=== PATIENT | female | born 1965 | race Caucasian/White ===

== ENCOUNTER → 2016-05-09 | Outpatient (CLI) | payer OTHER ==
[~2016-05-09] MED LIST: CHOL50006 PO; DULE200A INH; GLUCTAB PO; IRBE150T49 PO; LORA-392 PO; MAXA5TAB2 PO; RANI150T PO; SYNT112T PO; TRAM50TA PO; XOPEAER4 INH; ZOLP5TAB3 PO
[2016-05-09 13:17] LABS: FREE T4 1.24 NG/DL (0.76-1.46)
[2016-05-09 13:36] LABS: ALKALINE PHOSPHATASE 70 U/L (45-117); ALT (GPT) 32 U/L (10-53); ANION GAP 7 MEQ/L (5-15); AST (GOT) 13 U/L (15-37); BICARBONATE 26.1 MEQ/L (21.0-32.0); BLOOD UREA NITROGEN 19 MG/DL (7-18); CHLORIDE 104 MEQ/L (98-107); GLOMERULAR FILTRATION RATE 54 ML/MIN (>89); GLUCOSE,FASTING 114 MG/DL (74-99); LDL CHOLESTEROL 160 MG/DL (0-99); POTASSIUM 3.9 MEQ/L (3.5-5.1); SODIUM (NA) 137 MEQ/L (136-145); TOTAL BILIRUBIN ADULT 0.8 MG/DL (0.2-1.0)
[2016-05-09 16:50] LABS: HEMOGLOBIN A1a 0.9 %; HEMOGLOBIN A1b 1.8 %; HEMOGLOBIN Ao 86.1 %; HEMOGLOBIN LA1C 1.9 %; HEMOGLOBIN P3 3.5 %
== END ==
LOC: PLAB 08:57
DX: E03.9 Hypothyroidism, unspecified (principal); E78.5 Hyperlipidemia, unspecified; E55.9 Vitamin D deficiency, unspecified; R73.01 Impaired fasting glucose
CPT/HCPCS: 80053; 80061; 82306; 82607; 82746; 83036; 84439; 84443

== ENCOUNTER 2016-07-06 23:46 | Emergency (ER) | payer OTHER ==
[~2016-07-06] VITALS: Ht 180.3 cm; Wt 96.0 kg
[2016-07-06 23:47] VITALS: BP 162/91; PULSE 91; RESP 18; TEMP 98.6; O2SAT 96
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
[2016-07-07] MEDS ORDERED: TRAM50TA PO (00:46)
--- NOTE | 2016-07-07 00:52 | RADRPT ---
EXAM DATE/TIME: 07/07/2016 00:35 [facility] COMPARISON: No previous studies available for comparison. INDICATIONS : Right flank rib pain from a fall. MEDICAL HISTORY : None. SURGICAL HISTORY : None. ENCOUNTER: Initial ACUITY: 3 days PAIN SCORE: 8/10 LOCATION: Right flank chest FINDINGS: Multiple views of the right ribs were performed. There is no evidence of displaced fracture. No sangeeta tructive lesions or areas of periosteal thickening are seen. Expiratory view of the chest is negativ e for pneumothorax. The mediastinal structures are midline. CONCLUSION: Unremarkable examination of the right ribs and chest. Praveen Turner Jr., MD on July 07, 2016 at 0:49 Board Certified Radiologist. This report was verified electronically.
== END 2016-07-07 02:46 | disposition home or self-care (01) ==
LOC: NEPB 23:46
DX: S20.211A Contusion of right front wall of thorax, initial encounter (principal); W10.9XXA Fall (on) (from) unspecified stairs and steps, initial encounter; E11.9 Type 2 diabetes mellitus without complications; I10 Essential (primary) hypertension; E03.9 Hypothyroidism, unspecified; E78.00 Pure hypercholesterolemia, unspecified; Z79.84 Long term (current) use of oral hypoglycemic drugs; Z87.09 Personal history of other diseases of the respiratory system; Z86.59 Personal history of other mental and behavioral disorders; Z86.79 Personal history of other diseases of the circulatory system; Z87.19 Personal history of other diseases of the digestive system; Z86.2 Personal history of diseases of the blood and blood-forming organs and certain disorders involving the immune mechanism; Z87.39 Personal history of other diseases of the musculoskeletal system and connective tissue; Z86.69 Personal history of other diseases of the nervous system and sense organs
CPT/HCPCS: 71101; 99283

== ENCOUNTER → 2016-08-30 | Outpatient (CLI) | payer OTHER ==
[2016-08-30 09:50] LABS: ALKALINE PHOSPHATASE 71 U/L (45-117); ALT (GPT) 32 U/L (10-53); ANION GAP 9 MEQ/L (5-15); AST (GOT) 16 U/L (15-37); BICARBONATE 26.3 MEQ/L (21.0-32.0); BLOOD UREA NITROGEN 13 MG/DL (7-18); CHLORIDE 105 MEQ/L (98-107); GLOMERULAR FILTRATION RATE 64 ML/MIN (>89); POTASSIUM 4.1 MEQ/L (3.5-5.1); SODIUM (NA) 140 MEQ/L (136-145); TOTAL BILIRUBIN ADULT 0.6 MG/DL (0.2-1.0)
[2016-08-30 10:42] LABS: RHEUMATOID FACTOR TRIGGER LESS THAN 10.0 IU/ML (0.0-14.9)
== END ==
LOC: PLAB 07:52
PROVIDERS: ATTEND Internal Medicine Rheumatology
DX: M06.4 Inflammatory polyarthropathy (principal)
CPT/HCPCS: 80053; 85652; 86038; 86140; 86200; 86430

== ENCOUNTER → 2016-09-26 | Outpatient (CLI) | payer OTHER ==
[2016-09-26 09:30] LABS: FREE T4 1.18 NG/DL (0.76-1.46)
== END ==
LOC: PLAB 06:58
DX: E03.9 Hypothyroidism, unspecified (principal)
CPT/HCPCS: 84439; 84443

== ENCOUNTER → 2016-10-11 | Outpatient (CLI) | payer OTHER ==
[2016-10-11 10:00] LABS: ANION GAP 6 MEQ/L (5-15); AST (GOT) 19 U/L (15-37); BICARBONATE 26.1 MEQ/L (21.0-32.0); BLOOD UREA NITROGEN 15 MG/DL (7-18); CHLORIDE 103 MEQ/L (98-107); GLOMERULAR FILTRATION RATE 61 ML/MIN (>89); GLUCOSE,FASTING 99 MG/DL (74-99); POTASSIUM 4.1 MEQ/L (3.5-5.1); SODIUM (NA) 135 MEQ/L (136-145)
[2016-10-11 10:11] LABS: ALKALINE PHOSPHATASE 72 U/L (45-117); ALT (GPT) 33 U/L (10-53); LDL CHOLESTEROL 183 MG/DL (0-99); TOTAL BILIRUBIN ADULT 0.4 MG/DL (0.2-1.0)
[2016-10-11 17:38] LABS: HEMOGLOBIN A1b 1.7 %; HEMOGLOBIN Ao 86.1 %; HEMOGLOBIN LA1C 1.7 %; HEMOGLOBIN P3 3.5 %
== END ==
LOC: PLAB 06:37
DX: I10 Essential (primary) hypertension (principal); E03.9 Hypothyroidism, unspecified; E55.9 Vitamin D deficiency, unspecified; R73.01 Impaired fasting glucose
CPT/HCPCS: 80053; 80061; 82306; 83036; 84443

== ENCOUNTER 2016-10-31 13:42 | Inpatient (IN) | payer OTHER ==
[~2016-10-31] VITALS: Ht 179.1 cm; Wt 99.2 kg
[~2016-10-31 13:42] MED LIST changes: -CHOL50006 PO; -GLUCTAB PO; -LORA-392 PO; -MAXA5TAB2 PO
[2016-12-02] MEDS ORDERED: ALPR0.25 PO (09:25)
[2016-12-02] MEDS ORDERED: DULE100A INH (09:30)
[2016-12-02] MEDS ORDERED: XOPEAER4 INH (09:30)
[2016-12-02] MEDS ORDERED: CHOL1CAP34 PO (09:30)
[2016-12-02] MEDS ORDERED: RIZA10TA2 PO (09:30)
[2017-01-03] MEDS ORDERED: VANCOMYCIN 1000 MG/NS 250 ML (for <70 kg) IV SCH ×2 (05:30)
[2017-01-03] MEDS ORDERED: POVIDONE IODINE 7.5% SCRUB 118 ML BOTTLE TOPICAL SCH (05:30)
[2017-01-03] MEDS ORDERED: CLINDAMYCIN 900 MG/NS 100 ML IV SCH ×2 (05:30)
[2017-01-03] MEDS ORDERED: CHLORHEXIDINE GLUCONATE 4% SOLN 120 ML BTL TOPICAL SCH (05:30)
[2017-01-03] MEDS ORDERED: DEXAMETHASONE SOD PHOS 20 MG/5 ML VIAL IV PUSH SCH (05:30)
[2017-01-03] MEDS ORDERED: ACETAMINOPHEN 1000 MG/100 ML 100 ML IV ONE (06:45)
[2017-01-03] MEDS ORDERED: SODIUM CHLORIDE 0.9% INJ 100 ML ONE (06:58)
[2017-01-03] MEDS ORDERED: METOPROLOL TARTRATE 25 MG TAB PO PRN (07:00)
[2017-01-03] MEDS ORDERED: CHLORHEXIDINE GLUCONATE 2 % 1 PACK (2 CLOTHS) TOPICAL PRN (07:00)
[2017-01-03] MEDS ORDERED: LACTATED RINGER'S 1000 ML IV PRN (07:00)
[2017-01-03] MEDS ORDERED: POVIDONE IODINE 5% (ANTISEPSIS KIT) 4 APPLICATIONS EACH NARE PRN (07:00)
[2017-01-03] MEDS ORDERED: INSULIN HUMAN REGULAR 1,000 UNITS/10 ML VIAL SQ PRN (07:00)
[2017-01-03] MEDS ORDERED: SODIUM CHLORID 0.9% 500 ML IV PRN (07:00)
[2017-01-03] MEDS ORDERED: RIZATRIPTAN PO PRN (07:15)
[2017-01-03] MEDS ORDERED: SODIUM CHLORIDE 0.9% FLUSH 5 ML FLUSH IVF PRN (07:15)
[2017-01-03] MEDS ORDERED: Post-op Orders (for Pharmacy) MISC XX ONE (07:15)
[2017-01-03] MEDS ORDERED: ENOX40P SQ (07:17)
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
[2017-01-03] MEDS ORDERED: ASPI81CH37 CHEW (07:18)
[2017-01-03] MEDS ORDERED: DILA2TAB2 PO (07:18)
--- NOTE | 2017-01-03 07:18 | HHI.FF ---
Face to Face Verification Diagnosis: (1) Primary localized osteoarthrosis, lower leg Physical Therapy Gait training, Safety evaluation, Transfer training, bed to chair Knee: Total knee, Protocol: Left, Full weight bearing Left LE Weight Bearing: WB as tolerated Nursing RN: 3 days/week x 2 weeks Nursing: Case teaching, Dressing changes Dressing Changes: Daily dressing change I have seen patient Valentina Hernandez on 01/03/17. My clinical findings support the need for the requested home health care services because: Limited ability to care for self High risk of falls I certify that my clinical findings support that this patient is homebound because: Post-op weakness Unsteady gait/balance Oscar Balderas Jan 03, 2017 07:18
[2017-01-03] MEDS ORDERED: COMMODE 3-IN-11 MIS (07:22)
[2017-01-03] MEDS ORDERED: WALKER WHEELS/F1 MIS (07:22)
[2017-01-03] MEDS ORDERED: CPMMACHINE (07:22)
[2017-01-03] MEDS ORDERED: GENTAMICIN SULFATE 80 MG/2 ML VIAL ONE ×2 (07:33)
[2017-01-03] MEDS ORDERED: LEVOTHYROXINE SODIUM 112 MCG TAB PO SCH (08:00)
[2017-01-03] MEDS ORDERED: PROPOFOL 200 MG/20 ML AMP IV ONE (08:11)
[2017-01-03] MEDS ORDERED: MIDAZOLAM HCL 2 MG/2 ML VIAL IV ONE (08:11)
[2017-01-03] MEDS ORDERED: LIDOCAINE HCL 1% PF 5 ML AMPULE OTHER ONE (08:11)
[2017-01-03] MEDS ORDERED: DEXAMETHASONE SOD PHOS 4 MG/ML VIAL IV ONE (08:11)
[2017-01-03] MEDS ORDERED: LACTATED RINGER'S 1000 ML INJ 1,000 ML IV ONE ×2 (08:11→12:45)
[2017-01-03] MEDS ORDERED: PHENYLEPH/NS 1000 MCG/10 ML SYR IV ONE (08:11)
[2017-01-03] MEDS ORDERED: ONDANSETRON HCL 4 MG/2 ML VIAL IV PUSH ONE (08:11)
[2017-01-03] MEDS ORDERED: ePHEDrine/NS 25 MG/5 ML SYR IV ONE (08:11)
[2017-01-03] MEDS ORDERED: ONDANSETRON HCL 4 MG/2 ML VIAL ONE (08:22)
[2017-01-03] MEDS ORDERED: DEXAMETHASONE SOD PHOS 4 MG/ML VIAL ONE (08:22)
[2017-01-03] MEDS ORDERED: FAMOTIDINE 20 MG/2 ML VIAL ONE (08:22)
[2017-01-03] MEDS ORDERED: APREPITANT 40 MG CAP ONE (08:22)
[2017-01-03] MEDS ORDERED: ROPIVACAINE PERI-ARTICULAR INJECTION. P-ARTICULR SCH ×5 (08:30)
[2017-01-03] MEDS ORDERED: TRANEXAMIC PERI-ARTICULAR 3,000 MG/NS 100 ML P-ARTICULR SCH ×2 (08:30)
[2017-01-03] MEDS ORDERED: SODIUM CHLORIDE 0.9% IV SCH (08:30)
[2017-01-03] MEDS ORDERED: TRANEXAMIC ACID IV SCH (08:30)
[2017-01-03] MEDS: SODIUM CHLORIDE 0.9% FLUSH 5 ML FLUSH IVF SCH ×2 (09:00→19:39)
[2017-01-03] MEDS ORDERED: BISACODYL 10 MG SUPP RECTAL PRN (09:00)
[2017-01-03] MEDS ORDERED: DO NOT ADM ANY ANTICOAGULANT DRUGS PRN (10:56)
--- NOTE | 2017-01-03 10:59 | MP ---
cc: STANLEY PENA M.D. DATE OF SURGERY: 01/03/2017 PREOPERATIVE DIAGNOSIS Left knee osteoarthritis. POSTOPERATIVE DIAGNOSES Left knee osteoarthritis. PROCEDURE Left total knee arthroplasty. SURGEON Dr. Stanley Pena FRAME CHANGER Dr. Stanley Balderas PA-C ANESTHESIA Spinal with an adductor canal femoral nerve block. ESTIMATED BLOOD LOSS 50 cc. COMPLICATIONS None. IMPLANTS USED DePuy Attune size 5 posterior stabilized femoral component, size 5 rotating platform tibia baseplate, size 6 mm tibial insert, size 38 patella. JUSTIFICATION The patient is a 51-year-old female with a history of severe end-stage osteoarthritis involving the left knee. She has severe disabling pain with standing, walking, ambulation and weightbearing activities and severe pain at rest. Her pain interferes with activities of daily living. She has failed greater than three months of nonoperative conservative treatment to include medication therapy, injections, ambulatory assisted aids, home exercise program, activity modification and weight loss attempts. X-rays of the left knee reveal severe end-stage osteoarthritis, joint space narrowing, subchondral sclerosis, subchondral cysts, osteophyte formation and associated varus deformity. The patient is counseled as to the risks, benefits and alternatives of a total knee arthroplasty. The risks were discussed which include but not limited to anesthesia, bleeding, infection, damage to nerves and blood vessels, pain, stiffness, failure of components, blood clots, pulmonary embolism and even . The patient's pain is severe. She favored the benefits over the risks. She did wish to proceed with surgery. PROCEDURE IN DETAIL Written consent was obtained. The patient was identified by name and taken to the operating room and placed supine on the operating table. Spinal anesthesia was administered as well as an adductor canal femoral nerve block. The patient was administered one gram of IV vancomycin and two grams of IV Ancef. A well-padded tourniquet was placed on the left thigh. The left lower extremity was prepped and draped using isopropyl alcohol, Hibiclens solution and ChloraPrep solution. After a timeout was performed an Esmarch bandage was used to exsanguinate the left lower extremity. The tourniquet was inflated to 250 mmHg. A longitudinal incision was made over the anterior aspect of the left knee. A medial parapatellar arthrotomy was performed. The patella was everted. A patellar resection guide was used to resect 9 mm of patella. A size 38 mm guide was placed. Three drill holes were placed. The 38 mm trial fit well. Attention was turned to the femur where an intramedullary guide roney was placed. The distal femoral guide was set to remove 11 mm of distal femur 5 degrees off the anatomic valgus axis alignment. I chose 11 mm because there was significant preoperative flexion contracture. An oscillating saw was used to perform the distal femoral cut. Attention was turned to the tibia where an extramedullary tibial guide was set to remove 5 mm off the lowest portion of the medial tibial plateau. A tibial guide was pinned in place and the tibia cut was performed. A 5 mm spacer block showed full extension. Attention was turned back to the femur. The AP sizer block measured a size 5. The anterior reference 3 degree external rotation guide was used to pin a size [address] The anterior and posterior chamfer cuts were performed. A PCL box guide was pinned in place and the PCL was box cut with an oscillating saw. The medial and lateral meniscus remnants were removed as well as bone and soft tissue debris from the posterior portion of the knee. A size 5 tibial baseplate was pinned in place and the tibia was drilled and punched. Trial components were evaluated and final components cemented in place. With the correct components the leg could achieve full extension 0 degrees and flexion 140. No evidence of tibial lift-off. Varus-valgus balance appeared appropriate and symmetric. The patella was noted to track centrally. The tourniquet was deflated. Bovie cautery was used for hemostasis. The surgical wound was thoroughly irrigated with sterile saline pulse lavage antibiotic-impregnated solution. The arthrotomy incision was closed with #1 Vicryl suture, the subcutaneous layer with 2-0 Vicryl suture. The skin was closed with Dermabond. Sterile dressings were applied. The patient tolerated the procedure well with no intraoperative complications noted. Stanley Balderas, physician assistant guest services manager certified, was present during the entire procedure to include patient positioning and the procedure itself. The medical necessity of the physician assistant guest services manager was indicated in this case due to the complexity of the proceudre. He assisted with manipulation of the leg and also retraction of muscle, tendon, bone and neurovascular structures. He assisted with preparation of bone and also implantation of the prosthetic replacement. MD JAMAAL Willis/MOE /10:30 AM /10:40 AM
--- NOTE | 2017-01-03 11:17 | PD.ORT.PN ---
Objective Vitals Vital Signs Date Time Temp Pulse Resp B/P (MAP) Pulse Ox O2 Delivery O2 Flow Rate FiO2 01/03/17 07:23 98.2 87 20 111/67 (82) 97 I/O 01/02/17 01/02/17 01/02/17 01/03/17 01/03/17 01/03/17 07:00 15:00 23:00 07:00 15:00 23:00 Intake Total 1100 ml Output Total 550 ml Balance 550 ml Intake Other 1100 ml Output Urine Total 500 ml Estimated Blood Loss 50 ml Assessment & Plan Ortho Post Op Day #: 0 Problem List: Assessment and Plan s/p L TKA POD#0 wbat daily dressing changes lovenox d/c planning home vs snf rx in chart 1349 signed f/up dr. xie 2 weeks Oscar Balderas Jan 03, 2017 11:17
[2017-01-03] MEDS: SODIUM CHLOR 0.9% 1000 ML INJ 1,000 ML IV SCH ×2 (11:20→17:14)
[2017-01-03] MEDS ORDERED: KETOROLAC TROMETHAMINE 30 MG/ML (IVP) VIAL ONE (11:32)
[2017-01-03] MEDS ORDERED: *HYDROmorphone PF 1 MG VIAL PERIprocedural Use ONLY ONE ×2 (11:32→12:22)
--- NOTE | 2017-01-03 11:52 | RADRPT ---
EXAM DATE/TIME: 01/03/2017 11:11 [place] COMPARISON: No previous studies available for comparison. INDICATIONS : Left total knee post op. MEDICAL HISTORY : Hypertension. SURGICAL HISTORY : None. ENCOUNTER: Initial ACUITY: 1 day PAIN SCORE: 0/10 LOCATION: Bilateral chest FINDINGS: Displacement of a total knee prosthesis which appears to be well-seated. CONCLUSION: Total knee prosthesis well seated Tim Gil MD on January 03, 2017 at 11:50 Board Certified Radiologist. This report was verified electronically.
[2017-01-03] MEDS ORDERED: traMADol HCL 50 MG TAB PO PRN (12:00)
[2017-01-03] MEDS ORDERED: RESP: ALBUTEROL 2.5 MG/3 ML NEB (PRN) NEB (13:15)
--- NOTE | 2017-01-03 13:21 | PD.CONS ---
HPI Service [facility] Consult Requested By Primary Care Physician Vinny Quinteros MD, PhD Diagnoses: History of Present Illness Mrs. Hernandez is a 51 year old female. She is hospitalized for a left total knee arthroplasty. I have seen her status post surgery and she is recovering well thus far. Chronic osteoarthritis with prior injuries and a recent injury which was not recovering in regards to pain prompted her knee replacement surgery today. Presently her blood pressures are relatively low, she takes blood pressure medications at baseline but these are on hold. She has asthma but this is not exacerbated. She has episodes of migraine headaches but she reports no headaches at this time. Her primary complaint is burning of the IV site. Review of Systems Constitutional: DENIES: Diaphoretic episodes, Fatigue, Fever, Weight gain, Weight loss, Chills, Dizziness, Change in appetite, Night Sweats Endocrine: DENIES: Heat/cold intolerance Eyes: DENIES: Blurred vision, Diplopia, Eye inflammation, Eye pain, Vision loss , Photosensitivity, Double Vision Ears, nose, mouth, throat: DENIES: Tinnitus, Hearing loss, Vertigo, Nasal discharge, Oral lesions, Throat pain, Hoarseness, Ear Pain, Running Nose, Epistaxis, Sinus Pain, Toothache, Odynophagia Respiratory: DENIES: Apneas, Cough, Snoring, Wheezing, Hemoptysis, Sputum production, Shortness of breath Cardiovascular: DENIES: Chest pain, Palpitations, Syncope, Dyspnea on Exertion , PND, Lower Extremity Edema, Orthopnea, Claudication Gastrointestinal: DENIES: Abdominal pain, Black stools, Bloody stools, Constipation, Diarrhea, Nausea, Vomiting, Difficulty Swallowing, Anorexia Musculoskeletal: COMPLAINS OF: Joint pain, DENIES: Muscle aches, Stiffness, Joint Swelling, Back pain, Neck pain Integumentary: DENIES: Abnormal pigmentation, Pruritus, Rash, Nail changes, Breast masses, Breast skin changes, Nipple discharge Hematologic/lymphatic: DENIES: Bruising, Lymphadenopathy Immunologic/allergic: DENIES: Eczema, Urticaria Neurologic: DENIES: Abnormal gait, Headache, Localized weakness, Paresthesias, Seizures, Speech Problems, Tremor, Poor Balance Psychiatric: DENIES: Anxiety, Confusion, Mood changes, Depression, Hallucinations, Agitation, Suicidal Ideation, Homicidal Ideation, Delusions Past Family Social History Allergies: Coded Allergies: acetaminophen (Verified Allergy, Severe, Rash, 01/03/17) nausea vomiting rash adhesive (Verified Allergy, Severe, red rash PAPER TAPE ONLY, 01/03/17) amoxicillin (Verified Allergy, Severe, RASH, VOMITTING, DIARRHEA, 01/03/17) cefepime (Verified Allergy, Severe, RASH, VOMITTING, DIARRHEA, 01/03/17) cefprozil (Verified Allergy, Severe, Anaphylaxis, 01/03/17) ceftaroline fosamil (Verified Allergy, Severe, RASH, VOMITTING, DIARRHEA, 01/03/17) cefuroxime (Verified Allergy, Severe, RASH, VOMITTING, 01/03/17) clavulanic acid (Verified Allergy, Severe, RASH, VOMITTING, DIARRHEA, 01/03) codeine (Verified Allergy, Severe, NAUSEA,RASH,THINGS CRAWLING ON ME , ) hydrocodone (Verified Allergy, Severe, NAUSEA,ITCHING, 01/03/17) latex (Verified Allergy, Severe, RASH, HIVES, 01/03/17) morphine (Verified Allergy, Severe, Itching, 01/03/17) CODED WHEN USED LAST nickel (Verified Allergy, Severe, 01/03/17) oxycodone (Verified Allergy, Severe, rash,shakey,shortnes of breath, HALLUCINATIONS, 01/03/17) penicillin G (Verified Allergy, Severe, ANAPHYLAXIS, 01/03/17) perfume (Verified Allergy, Severe, 01/03/17) insulin aspart (Verified Adverse Reaction, Severe, "BODY DOES NOT PROCESS INSULIN" "HYPERINSULIN ANEMIA", 01/03/17) insulin aspart protamine human (Verified Adverse Reaction, Severe, "BODY DOES NOT PROCESS INSULIN" "HYPERINSULIN ANEMIA", 01/03/17) insulin detemir (Verified Adverse Reaction, Severe, "BODY DOES NOT PROCESS INSULIN" "HYPERINSULIN ANEMIA", 01/03/17) insulin glargine (Verified Adverse Reaction, Severe, "BODY DOES NOT PROCESS INSULIN" "HYPERINSULIN ANEMIA", 01/03/17) insulin isophane (NPH) (Verified Adverse Reaction, Severe, "BODY DOES NOT PROCESS INSULIN" "HYPERINSULIN ANEMIA", 01/03/17) insulin lispro (Verified Adverse Reaction, Severe, "BODY DOES NOT PROCESS INSULIN" "HYPERINSULIN ANEMIA", 01/03/17) insulin regular (Verified Adverse Reaction, Severe, "BODY DOES NOT PROCESS INSULIN" "HYPERINSULIN ANEMIA", 01/03/17) Uncoded Allergies: SILK TAPE (Allergy, Severe, SWELLS, 11/29/08) Past Medical History Hypertension Hyperlipidemia Asthma Osteoarthritis Hypothyroidism Metabolic syndrome Migraine headaches Past Surgical History Previous left knee surgery Reported Medications Reported Meds & Active Scripts Active Dilaudid (Hydromorphone HCl) 2 Mg Tab 2 Mg PO Q6H PRN Aspirin Low Dose (Aspirin) 81 Mg Chew 81 Mg CHEW BID 30 Days Lovenox Inj (Enoxaparin Sodium) 40 Mg/0.4 Ml Syr 40 Mg SQ DAILY 7 Days Reported Vitamin D3 (Cholecalciferol) 50,000 Unit Cap 50,000 Units PO Q7D Xopenex Hfa 15 GM Inh (Levalbuterol 15 GM Inh) 45 Mcg/Act Aer 2 Puff INH PRN Shake well before using. (1 puff = 45 mcg) Dulera 120 Act Inh (Mometasone-Formoterol 120 Act Inh) 100-5 Mcg/Act Inh 2 Puff INH BID Rizatriptan (Rizatriptan Benzoate) 10 Mg Tab 1 Tab PO Q2HR PRN Alprazolam 0.25 Mg Tab 0.25 Mg PO BID Dulera 120 Act Inh (Mometasone-Formoterol 120 Act Inh) 200-5 Mcg/Act Inh 2 Puff INH BID Avapro (Irbesartan) 150 Mg Tab 150 Mg PO DAILY Synthroid (Levothyroxine Sodium) 112 Mcg Tab 112 Mcg PO DAILY Ranitidine (Ranitidine HCl) 150 Mg Tab 1 Tab PO BID Tramadol (Tramadol HCl) 50 Mg Tab 50 Mg PO Q6HR PRN Xopenex Hfa 15 GM Inh (Levalbuterol 15 GM Inh) 45 Mcg/Act Aer 45 Mcg INH Q4HR Shake well before using. (1 puff = 45 mcg) Zolpidem (Zolpidem Tartrate) 5 Mg Tab 5 Mg PO HS PRN Active Ordered Medications Administered Medications Medications (Trade) Dose Ordered Sig/Regina Route PRN Reason Start Time Stop Time Status Last Admin Dose Admin Povidone Iodine (Betadine 7.5% Scrub) 1 applic ONCE TOPICAL 01/03/17 05:30 01/06/17 05:29 01/03/17 05:30 Vancomycin HCl 1000 mg/Sodium Chloride 250 ml @ 250 mls/hr [employer] IV 01/03/17 05:30 01/06/17 05:29 01/03/17 07:24 Clindamycin Phosphate 900 mg/ Sodium Chloride 106 ml @ 212 mls/hr [employer] IV 01/03/17 05:30 01/03/17 07:24 Tranexamic Acid 1488 mg/Sodium Chloride 114.88 ml @ 200 mls/ hr ONCE IV 01/03/17 08:30 01/03/17 21:00 01/03/17 09:01 Ropivacaine 24.63 ml/Ketorolac Tromethamine 30 mg/Epinephrine HCl 0.5 mg/ Clonidine 80 mcg/ Sodium Chloride 100 ml @ 200 mls/hr ONCE P-ARTICULR 01/03/17 08:30 01/03/17 21:00 01/03/17 10:26 Tranexamic Acid 3000 mg/Sodium Chloride 130 ml @ 260 mls/hr ONCE P-ARTICULR 01/03/17 08:30 01/03/17 21:00 01/03/17 10:16 Dexamethasone Sodium Phosphate (Decadron Inj) 10 mg ONCE IV PUSH 01/03/17 05:30 01/03/17 21:00 01/03/17 07:20 Lactated Ringer's 1,000 ml @ 30 mls/hr Q24H PRN IV SEE LABEL COMMENTS 01/03/17 07:00 01/06/17 06:59 01/03/17 07:00 Povidone Iodine (Betadine 5% Antisepsis Kit) 1 applic [employer] PRN EACH NARE SEE LABEL COMMENTS 01/03/17 07:00 01/06/17 06:59 01/03/17 07:00 Chlorhexidine Gluconate (Chlorhexidine 2% Cloth) 3 pack [employer] PRN TOPICAL SEE LABEL COMMENTS 01/03/17 07:00 01/06/17 06:59 01/03/17 05:15 Sodium Chloride 1,000 ml @ 100 mls/hr Q10H IV 01/03/17 07:14 01/03/17 11:20 Family History Diabetes mellitus type 2 in most relatives Dementia Social History No smoking No alcohol abuse No illicit drug use Physical Exam Vital Signs Vital Signs Date Time Temp Pulse Resp B/P (MAP) Pulse Ox O2 Delivery O2 Flow Rate FiO2 01/03/17 11:15 105/55 (72) Simple Mask 6 01/03/17 10:59 97.9 91 15 83/51 (62) 100 Simple Mask 6 01/03/17 07:23 98.2 87 20 111/67 (82) 97 Physical Exam GENERAL: NAD, A&Ox3 HEAD: Normocephalic. NECK: Supple, trachea midline. No lymphadenopathy. EYES: No scleral icterus. No injection or drainage. CARDIOVASCULAR: Regular rate and rhythm without murmurs, gallops, or rubs. RESPIRATORY: Breath sounds equal bilaterally. No accessory muscle use. GASTROINTESTINAL: Abdomen soft, non-tender, nondistended. MUSCULOSKELETAL: No cyanosis, or edema. Left knee is bandaged and in knee mobilizer SKIN: Warm and dry. NEURO: No focal neurological deficitis. Assessment and Plan Problem List: (1) Status post total knee replacement, left ICD Code: Z96.652 - Presence of left artificial knee joint Status: Acute (2) Primary localized osteoarthrosis, lower leg ICD Code: M17.10 - Unilateral primary osteoarthritis, unspecified knee (3) Headache ICD Code: R51 - Headache Status: Acute (4) Hypertension ICD Code: I10 - Essential (primary) hypertension Status: Chronic (5) Hypothyroidism ICD Code: E03.9 - Hypothyroidism, unspecified Status: Chronic (6) Hyperlipidemia ICD Code: E78.5 - Hyperlipidemia, unspecified Status: Chronic (7) Osteoarthritis ICD Code: M19.90 - Unspecified osteoarthritis, unspecified site Status: Acute Assessment and Plan Assessment and plan 51-year-old female status post left total knee arthroplasty Status post left total knee arthroplasty Osteoarthritis Orthopedics following Continue as needed pain treatments PT to start Postop IV fluids discontinued secondary to IV burning sensations at site Supportive care Hypertension Borderline low, no current hypertension Home treatments for now monitor blood pressures Pain treatments and or anesthesia may be causing his suppressive effect Resume treatments when blood pressure increases Hyperlipidemia No change to baseline treatment Follow as an outpatient Asthma Baseline maintenance therapy resumed As needed albuterol started Monitor clinically Currently no exacerbation Hypothyroidism Continue Synthroid Follow levels as an outpatient Metabolic syndrome Follow blood sugars BMP in the morning His blood sugars are elevated continue to monitor blood sugars Migraine headaches Imitrex as needed Follow clinically for headaches DVT prophylaxis To start postop Selection per orthopedic discretion Problem Qualifiers (1) Primary localized osteoarthrosis, lower leg: Qualified Codes: M17.12 - Unilateral primary osteoarthritis, left knee Sumit Grey MD Jan 03, 2017 13:21
[2017-01-03 13:30] VITALS: BP 107/65; PULSE 84; RESP 18; TEMP 96.6; O2SAT 96
[2017-01-03] MEDS: HYDROmorphone HCL PF 2 MG/ML VIAL IV PRN ×2 (14:40→23:20)
[2017-01-03 16:00] VITALS: BP 109/69; PULSE 79; RESP 18; TEMP 97.6; O2SAT 94
[2017-01-03] MEDS: diphenhydrAMINE HCL 50 MG/ML VIAL IV PRN ×2 (16:10→23:20)
[2017-01-03] MEDS ORDERED: ONDANSETRON HCL 4 MG/2 ML VIAL IVP PRN (18:00)
[2017-01-03] MEDS: VANCOMYCIN INJ 1,000 MG in SODIUM CHLOR 0.9% 250 ML INJ 250 ML IV SCH (19:39)
[2017-01-03] MEDS: traMADol HCL 50 MG TAB PO PRN (19:40)
[2017-01-03] MEDS: ALPRAZolam 0.25 MG TAB PO SCH (19:40)
[2017-01-03] MEDS: FAMOTIDINE 20 MG TAB PO SCH (19:40)
[2017-01-03 20:00] VITALS: BP 103/61; PULSE 81; RESP 16; TEMP 96.5; O2SAT 97
[2017-01-03] MEDS ORDERED: MOMETASONE INH SCH (21:00)
[2017-01-03] MEDS ORDERED: FORMOTEROL INH SCH (21:00)
[2017-01-04] VITALS (7 sets, daily range): BP systolic 87–113; BP diastolic 55–69; PULSE 62–93; RESP 16–18; TEMP 95.8–98.4; O2SAT 95–98
[2017-01-04] MEDS: SODIUM CHLOR 0.9% 1000 ML INJ 1,000 ML IV SCH ×3 (00:15→23:07)
[2017-01-04] MEDS: traMADol HCL 50 MG TAB PO PRN ×5 (03:43→23:24)
[2017-01-04 05:01] LABS: HEMATOCRIT 36.8 % (35.0-46.0); MEAN CELL VOLUME 92.5 FL (80.0-100.0); MEAN CORPUSCULAR HEMOGLOBIN 30.1 PG (27.0-34.0); MEAN CORPUSCULAR HGB CONC 32.5 % (32.0-36.0); PLATELET COUNT 223 TH/MM3 (150-450); RED BLOOD COUNT 3.98 MIL/MM3 (4.00-5.30); RED CELL DISTRIBUTION WIDTH 13.3 % (11.6-17.2); REVIEW FLAG FINAL; WHITE BLOOD COUNT 16.3 TH/MM3 (4.0-11.0)
[2017-01-04 05:05] LABS: BICARBONATE 23.7 MEQ/L (21.0-32.0); POTASSIUM 4.4 MEQ/L (3.5-5.1)
[2017-01-04] MEDS: diphenhydrAMINE HCL 50 MG/ML VIAL IV PRN ×2 (05:42→12:15)
[2017-01-04] MEDS: LEVOTHYROXINE SODIUM 112 MCG TAB PO SCH (05:42)
[2017-01-04] MEDS: HYDROmorphone HCL PF 2 MG/ML VIAL IV PRN ×3 (05:42→16:36)
[2017-01-04] MEDS: FAMOTIDINE 20 MG TAB PO SCH (08:33)
[2017-01-04] MEDS: ALPRAZolam 0.25 MG TAB PO SCH ×2 (08:33→21:37)
[2017-01-04] MEDS: VANCOMYCIN INJ 1,000 MG in SODIUM CHLOR 0.9% 250 ML INJ 250 ML IV SCH (08:43)
[2017-01-04] MEDS: LOSARTAN 50 MG TAB PO SCH (08:44)
[2017-01-04] MEDS: SODIUM CHLORIDE 0.9% FLUSH 5 ML FLUSH IVF SCH ×2 (08:50→21:00)
--- NOTE | 2017-01-04 11:01 | HHI.PR ---
Subjective Remarks pateint doing very well, motivated with physical therapy minimal pain complains -but experiencin some spasms- shoulders, neck Objective Vitals Vital Signs Date Time Temp Pulse Resp B/P (MAP) Pulse Ox O2 Delivery O2 Flow Rate FiO2 01/04/17 07:54 95.8 72 18 104/57 (73) 95 01/04/17 04:00 97.9 62 17 113/69 (84) 96 01/04/17 00:00 97.0 71 16 101/65 (77) 97 01/03/17 20:00 96.5 81 16 103/61 (75) 97 01/03/17 16:00 97.6 79 18 109/69 (82) 94 01/03/17 13:30 96.6 84 18 107/65 (79) 96 01/03/17 12:30 98.1 86 18 115/71 (86) 98 Nasal Cannula 3 01/03/17 12:15 85 18 116/70 (85) 100 Nasal Cannula 3 01/03/17 12:00 85 18 117/65 (82) 100 Nasal Cannula 3 01/03/17 11:45 88 15 88/50 (63) 98 Nasal Cannula 3 01/03/17 11:30 84 15 84/45 (58) 98 Nasal Cannula 3 01/03/17 11:16 86 15 98 01/03/17 11:15 105/55 (72) Simple Mask 6 I/O 01/03/17 01/03/17 01/03/17 01/04/17 01/04/17 01/04/17 07:00 15:00 23:00 07:00 15:00 23:00 Intake Total 1100 ml 600 ml 600 ml Output Total 550 ml 950 ml Balance 550 ml -350 ml 600 ml Intake Oral 600 ml 600 ml Other 1100 ml Output Urine Total 500 ml 950 ml Estimated Blood Loss 50 ml Result Diagram: 01/04/1733901/04/17339 Imaging Last Impressions Knee X-Ray 01/03/17713 Signed Impressions: Service Date/Time: Tuesday, January 03, 2017 11:11 - CONCLUSION: Total knee prosthesis well seated Tim Gil MD Objective Remarks awake and alert, no acute distress lungs clear regular rhythm abdomen soft, nontender extremities- LLE- with elastic post op dressing in place Medications and IVs left total knee arthroplasty Urinary Catheter: Yes Assessment to: Continue Hooper insert reason: Surgical/Invasive Proced Date of Insertion: Jan 03, 2017 A/P Problem List: (1) Status post total knee replacement, left ICD Code: Z96.652 - Presence of left artificial knee joint Status: Acute (2) Primary localized osteoarthrosis, lower leg ICD Code: M17.10 - Unilateral primary osteoarthritis, unspecified knee (3) Headache ICD Code: R51 - Headache Status: Acute (4) Hypertension ICD Code: I10 - Essential (primary) hypertension Status: Chronic (5) Hypothyroidism ICD Code: E03.9 - Hypothyroidism, unspecified Status: Chronic (6) Hyperlipidemia ICD Code: E78.5 - Hyperlipidemia, unspecified Status: Chronic (7) Osteoarthritis ICD Code: M19.90 - Unspecified osteoarthritis, unspecified site Status: Acute Assessment and Plan 51-year-old female status post left total knee arthroplasty Status post left total knee arthroplasty- 01/03 Osteoarthritis Orthopedics following-very motivated with PT and IS effirts Add Methocarbamol q 8 prn Hypertension -patient takes Avapro as OP 150 mg daily. States reactions/unable to tolerate Cozaar in the past d/w pharmacy- may use patient's own meds- Avapro Leukocytosis- maybe reactive -recheck in am. no fevers Hyperlipidemia No change to baseline treatment Follow as an outpatient Asthma- in remission continue home meds As needed albuterol started Monitor clinically Currently no exacerbation Hypothyroidism Continue Synthroid Follow levels as an outpatient Metabolic syndrome Follow blood sugars Migraine headaches- in remission Imitrex as needed Follow clinically for headaches DVT prophylaxis on Lovenox DC planning- SNF vs Home with health care and PT CM consult- to assist patient takes care of her daughter with CP- total care- arrange for any assitance that can be done on DC Problem Qualifiers (1) Primary localized osteoarthrosis, lower leg: Qualified Codes: M17.12 - Unilateral primary osteoarthritis, left knee Jazlyn Torres MD Jan 04, 2017 11:01
[2017-01-04] MEDS ORDERED: METHOCARBAMOL 500 MG TAB PO PRN (11:45)
[2017-01-04] MEDS: ENOXAPARIN SODIUM 40 MG/0.4 ML SYRINGE SQ SCH (12:16)
[2017-01-04] MEDS: SUMAtriptan SUCCINATE 25 MG TAB PO PRN (13:37)
[2017-01-04] MEDS ORDERED: hydrOXYzine HCL 10 MG TAB PO PRN (14:00)
--- NOTE | 2017-01-04 16:27 | PD.ORT.PN ---
Subjective Post Op Day #: 1 Subjective Remarks Patient resting in bed with moderate to severe pain. Patient unable to take pain medication as it is making her itch. Patient has tried benadryl and atarax. Patient notes no relief with these medications. Objective Vitals Vital Signs Date Time Temp Pulse Resp B/P (MAP) Pulse Ox O2 Delivery O2 Flow Rate FiO2 01/04/17 16:00 96.2 80 18 90/57 (68) 96 01/04/17 11:45 95.9 93 18 107/61 (76) 96 01/04/17 07:54 95.8 72 18 104/57 (73) 95 01/04/17 04:00 97.9 62 17 113/69 (84) 96 01/04/17 00:00 97.0 71 16 101/65 (77) 97 01/03/17 20:00 96.5 81 16 103/61 (75) 97 I/O 01/03/17 01/03/17 01/03/17 01/04/17 01/04/17 01/04/17 07:00 15:00 23:00 07:00 15:00 23:00 Intake Total 1100 ml 600 ml 600 ml 900 ml Output Total 550 ml 950 ml 950 ml Balance 550 ml -350 ml 600 ml -50 ml Intake Oral 600 ml 600 ml 650 ml IV Total 250 ml Other 1100 ml Output Urine Total 500 ml 950 ml 950 ml Estimated Blood Loss 50 ml # Bowel Movements 0 Result Diagram: 01/04/17 0340 01/04/17 0340 Procedures Left TKA Objective Remarks Dressing is C/D/I. EHL/TA/G intact. 2+ pedal pulse. Calf is soft and nontender. + SILT. Assessment & Plan Ortho Post Op Day #: 1 Problem List: Assessment and Plan POD #1: s/p L TKA wbat daily dressing changes lovenox d/c planning home vs snf rx in chart [id number] signed f/up dr. xie 2 weeks Sumit Hayes Jan 04, 2017 16:27
[2017-01-04] MEDS ORDERED: RANITIDINE HCL SYRUP 150 MG/10 ML UDC PO PRN (16:30)
[2017-01-04] MEDS: DOCUSATE SODIUM 100 MG CAP PO SCH (21:37)
[2017-01-04] MEDS: ZOLPIDEM TARTRATE 5 MG TAB PO PRN (21:37)
[2017-01-04] MEDS: MULTIVITAMINS/MINERALS THERAPEUTIC TAB PO SCH (21:37)
[2017-01-05] MEDS: HYDROmorphone HCL PF 2 MG/ML VIAL IV PRN (02:22)
[2017-01-05 03:48] VITALS: BP 103/57; PULSE 92; RESP 17; TEMP 98.1; O2SAT 98
[2017-01-05] MEDS: traMADol HCL 50 MG TAB PO PRN ×2 (05:53→14:58)
[2017-01-05] MEDS: LEVOTHYROXINE SODIUM 112 MCG TAB PO SCH (05:53)
[2017-01-05 07:11] LABS: BICARBONATE 26.4 MEQ/L (21.0-32.0); POTASSIUM 4.1 MEQ/L (3.5-5.1)
[2017-01-05 07:22] LABS: HEMATOCRIT 34.1 % (35.0-46.0); MEAN CELL VOLUME 92.2 FL (80.0-100.0); MEAN CORPUSCULAR HEMOGLOBIN 30.5 PG (27.0-34.0); PLATELET COUNT 193 TH/MM3 (150-450); RED CELL DISTRIBUTION WIDTH 13.4 % (11.6-17.2); REVIEW FLAG FINAL; WHITE BLOOD COUNT 9.7 TH/MM3 (4.0-11.0)
[2017-01-05 08:00] VITALS: BP 125/64; PULSE 102; RESP 18; TEMP 98.2; O2SAT 96
[2017-01-05] MEDS: MULTIVITAMINS/MINERALS THERAPEUTIC TAB PO SCH ×2 (08:46→21:55)
[2017-01-05] MEDS: DOCUSATE SODIUM 100 MG CAP PO SCH ×2 (08:46→21:55)
[2017-01-05] MEDS: ALPRAZolam 0.25 MG TAB PO SCH ×2 (08:46→21:55)
[2017-01-05] MEDS: AVAPRO PO SCH (08:46)
[2017-01-05] MEDS: SODIUM CHLORIDE 0.9% FLUSH 5 ML FLUSH IVF SCH ×2 (08:50→21:55)
[2017-01-05] MEDS: LOSARTAN 50 MG TAB PO SCH (08:53)
[2017-01-05] MEDS: SODIUM CHLOR 0.9% 1000 ML INJ 1,000 ML IV SCH ×2 (09:14→19:14)
[2017-01-05] MEDS: ENOXAPARIN SODIUM 40 MG/0.4 ML SYRINGE SQ SCH (09:20)
--- NOTE | 2017-01-05 10:37 | HHI.PR ---
Subjective Remarks pain post op no nausea or vomiting no chest pain or shortness of breath Objective Vitals Vital Signs Date Time Temp Pulse Resp B/P (MAP) Pulse Ox O2 Delivery O2 Flow Rate FiO2 01/05/17 08:00 98.2 102 18 125/64 (84) 96 01/05/17 03:48 98.1 92 17 103/57 (72) 98 01/04/17 23:31 98.4 91 18 107/68 (81) 98 01/04/17 19:53 98.4 81 17 87/55 (66) 97 01/04/17 16:00 96.2 80 18 90/57 (68) 96 01/04/17 11:45 95.9 93 18 107/61 (76) 96 I/O 01/04/17 01/04/17 01/04/17 01/05/17 01/05/17 01/05/17 07:00 15:00 23:00 07:00 15:00 23:00 Intake Total 600 ml 900 ml 1380 ml 480 ml Output Total 950 ml 100 ml Balance 600 ml -50 ml 1280 ml 480 ml Intake Oral 600 ml 650 ml 480 ml 480 ml IV Total 250 ml 900 ml Output Urine Total 950 ml 100 ml # Voids 1 1 # Bowel Movements 0 0 0 Result Diagram: 01/05/17 0520 01/05/17 0520 Imaging Last Impressions Knee X-Ray 01/03/17 0714 Signed Impressions: Service Date/Time: Tuesday, January 03, 2017 11:11 - CONCLUSION: Total knee prosthesis well seated Tim Gil MD Objective Remarks awake and alert, no acute distress lungs clear regular rhythm abdomen soft, nontender extremities- LLE- with elastic post op dressing in place Procedures 01/03- total knee arthroplasty Date of Insertion: Jan 03, 2017 A/P Problem List: (1) Status post total knee replacement, left ICD Code: Z96.652 - Presence of left artificial knee joint Status: Acute (2) Primary localized osteoarthrosis, lower leg ICD Code: M17.10 - Unilateral primary osteoarthritis, unspecified knee (3) Headache ICD Code: R51 - Headache Status: Acute (4) Hypertension ICD Code: I10 - Essential (primary) hypertension Status: Chronic (5) Hypothyroidism ICD Code: E03.9 - Hypothyroidism, unspecified Status: Chronic (6) Hyperlipidemia ICD Code: E78.5 - Hyperlipidemia, unspecified Status: Chronic (7) Osteoarthritis ICD Code: M19.90 - Unspecified osteoarthritis, unspecified site Status: Acute Assessment and Plan 51-year-old female status post left total knee arthroplasty Status post left total knee arthroplasty- 01/03 Osteoarthritis Orthopedics following-very motivated with PT and IS effirts Add Methocarbamol q 8 prn start po diluadid here 2 mg po q 6 prn Hypertension -patient takes Avapro as OP 150 mg daily. States reactions/unable to tolerate Cozaar in the past d/w pharmacy- may use patient's own meds- Avapro Leukocytosis- reactive -no fever Hyperlipidemia No change to baseline treatment Follow as an outpatient Asthma- in remission continue home meds As needed albuterol started Monitor clinically Currently no exacerbation Hypothyroidism Continue Synthroid Follow levels as an outpatient Metabolic syndrome Follow blood sugars Migraine headaches- in remission Imitrex as needed Follow clinically for headaches DVT prophylaxis on Lovenox per patient they paid 5 days stay upfront DC planning- SNF vs Home with health care and PT CM consult- to assist patient takes care of her daughter with CP- total care- arrange for any assitance that can be done on DC d/w at bedside they are concern with co pay with rehab medically stable for DC -tomorrow [facility] signs off Problem Qualifiers (1) Primary localized osteoarthrosis, lower leg: Qualified Codes: M17.12 - Unilateral primary osteoarthritis, left knee Jazlyn Torres MD Jan 05, 2017 10:37
--- NOTE | 2017-01-05 10:39 | PD.ORT.PN ---
Subjective Post Op Day #: 2 Subjective Remarks Patient resting in bed with continued moderate to severe pain. Patient unable to take pain medication as it is making her itch. Patient has tried benadryl and atarax. Patient notes no relief with these medications. Patient reports a slight improvement with Ranitidine. Medical to change Dilaudid IV to PO Dilaudid for longer pain management. Objective Vitals Vital Signs Date Time Temp Pulse Resp B/P (MAP) Pulse Ox O2 Delivery O2 Flow Rate FiO2 01/05/17 08:00 98.2 102 18 125/64 (84) 96 01/05/17 03:48 98.1 92 17 103/57 (72) 98 01/04/17 23:31 98.4 91 18 107/68 (81) 98 01/04/17 19:53 98.4 81 17 87/55 (66) 97 01/04/17 16:00 96.2 80 18 90/57 (68) 96 01/04/17 11:45 95.9 93 18 107/61 (76) 96 I/O 01/04/17 01/04/17 01/04/17 01/05/17 01/05/17 01/05/17 07:00 15:00 23:00 07:00 15:00 23:00 Intake Total 600 ml 900 ml 1380 ml 480 ml Output Total 950 ml 100 ml Balance 600 ml -50 ml 1280 ml 480 ml Intake Oral 600 ml 650 ml 480 ml 480 ml IV Total 250 ml 900 ml Output Urine Total 950 ml 100 ml # Voids 1 1 # Bowel Movements 0 0 0 Result Diagram: 01/05/17 0520 01/05/17 0520 Procedures Left TKA Objective Remarks Dressing is C/D/I. EHL/TA/G intact. 2+ pedal pulse. Calf is soft and nontender. + SILT. CPM in place. Assessment & Plan Ortho Post Op Day #: 2 Problem List: Assessment and Plan POD #2: s/p L TKA wbat daily dressing changes lovenox d/c planning home vs snf rx in chart [id number] signed f/up dr. xie 2 weeks Sumit Hayes Jan 05, 2017 10:39
[2017-01-05] MEDS ORDERED: HYDROmorphone HCL PF 1 MG/ML VIAL IV PUSH PRN (10:45)
[2017-01-05] MEDS: METHOCARBAMOL 500 MG TAB PO PRN (11:06)
[2017-01-05 12:00] VITALS: BP 114/69; PULSE 102; RESP 18; TEMP 98.7; O2SAT 95
[2017-01-05] MEDS: HYDROmorphone HCL 2 MG TAB PO PRN ×2 (12:59→18:57)
[2017-01-05] MEDS: SUMAtriptan SUCCINATE 25 MG TAB PO PRN (14:58)
[2017-01-05 16:00] VITALS: BP 112/76; PULSE 96; RESP 18; TEMP 97.9; O2SAT 95
[2017-01-05 20:07] VITALS: BP 126/66; PULSE 74; RESP 18; TEMP 99.4; O2SAT 99
[2017-01-05] MEDS: PANTOPRAZOLE SOD 20 MG DELAYED RELEASE TAB PO SCH (21:55)
[2017-01-05 23:40] VITALS: BP 138/73; PULSE 102; RESP 18; TEMP 97.8; O2SAT 97
[2017-01-06] MEDS: ZOLPIDEM TARTRATE 5 MG TAB PO PRN (00:16)
[2017-01-06] MEDS: METHOCARBAMOL 500 MG TAB PO PRN (00:16)
[2017-01-06] MEDS: traMADol HCL 50 MG TAB PO PRN ×4 (00:17→19:25)
[2017-01-06] MEDS: SODIUM CHLOR 0.9% 1000 ML INJ 1,000 ML IV SCH (01:34)
[2017-01-06 04:37] VITALS: BP 139/71; PULSE 102; RESP 18; TEMP 98.5; O2SAT 98
[2017-01-06] MEDS: LEVOTHYROXINE SODIUM 112 MCG TAB PO SCH (05:15)
[2017-01-06 07:39] VITALS: BP 110/64; PULSE 98; RESP 18; TEMP 98.1; O2SAT 96
[2017-01-06] MEDS: LOSARTAN 50 MG TAB PO SCH (08:08)
[2017-01-06 08:41] LABS: HEMATOCRIT 36.2 % (35.0-46.0); MEAN CELL VOLUME 89.6 FL (80.0-100.0); MEAN CORPUSCULAR HEMOGLOBIN 30.7 PG (27.0-34.0); MEAN CORPUSCULAR HGB CONC 34.3 % (32.0-36.0); PLATELET COUNT 246 TH/MM3 (150-450); RED BLOOD COUNT 4.04 MIL/MM3 (4.00-5.30); RED CELL DISTRIBUTION WIDTH 13.1 % (11.6-17.2); REVIEW FLAG FINAL; WHITE BLOOD COUNT 11.4 TH/MM3 (4.0-11.0)
[2017-01-06] MEDS: MULTIVITAMINS/MINERALS THERAPEUTIC TAB PO SCH (09:00)
[2017-01-06 09:06] LABS: BICARBONATE 27.1 MEQ/L (21.0-32.0); POTASSIUM 3.9 MEQ/L (3.5-5.1)
[2017-01-06] MEDS: ALPRAZolam 0.25 MG TAB PO SCH (10:08)
[2017-01-06] MEDS: ENOXAPARIN SODIUM 40 MG/0.4 ML SYRINGE SQ SCH (10:08)
[2017-01-06] MEDS: DOCUSATE SODIUM 100 MG CAP PO SCH (10:08)
[2017-01-06] MEDS: PANTOPRAZOLE SOD 20 MG DELAYED RELEASE TAB PO SCH (10:09)
[2017-01-06] MEDS: SODIUM CHLORIDE 0.9% FLUSH 5 ML FLUSH IVF SCH (10:13)
[2017-01-06] MEDS: AVAPRO PO SCH (10:13)
[2017-01-06] MEDS ORDERED: HYDROmorphone HCL PF 1 MG/ML VIAL IV PUSH PRN (10:30)
[2017-01-06] MEDS ORDERED: BUPIVACAINE LIPOSOME PF 1.3% 20 ML VIAL ONE (12:19)
--- NOTE | 2017-01-06 12:44 | PD.ORT.PN ---
Subjective Post Op Day #: 3 Subjective Remarks still having trouble controlling pain. Objective Vitals Vital Signs Date Time Temp Pulse Resp B/P (MAP) Pulse Ox O2 Delivery O2 Flow Rate FiO2 01/06/17 07:39 98.1 98 18 110/64 (79) 96 01/06/17 06:29 17 01/06/17 04:37 98.5 102 18 139/71 (93) 98 01/06/17 00:47 Room Air 01/05/17 23:40 97.8 102 18 138/73 (94) 97 01/05/17 20:07 99.4 74 18 126/66 (86) 99 01/05/17 19:57 18 01/05/17 16:00 97.9 96 18 112/76 (88) 95 I/O 01/05/17 01/05/17 01/05/17 01/06/17 01/06/17 01/06/17 07:00 15:00 23:00 07:00 15:00 23:00 Intake Total 480 ml 600 ml 480 ml 480 ml Balance 480 ml 600 ml 480 ml 480 ml Intake Oral 480 ml 600 ml 480 ml 480 ml # Voids 1 6 6 5 # Bowel Movements 0 0 0 0 Result Diagram: 01/06/17 0819 01/06/17 0819 Procedures Left TKA Objective Remarks in chair, nad incision no erythema, no drainage neg homans nvi Assessment & Plan Ortho Post Op Day #: 3 Problem List: Assessment and Plan POD #3: s/p L TKA wbat daily dressing changes lovenox d/c planning home - hold d/c today patient has hydrocodone listed on allergy meds, but wants to try this to control pain. benadryl to help with itching if necessary rx in chart [id number] signed f/up dr. xie 2 weeks Oscar Balderas Jan 06, 2017 12:44
[2017-01-06] MEDS ORDERED: ACETAMINOPHEN/HYDROcodone 325 MG/7.5 MG TAB PO PRN ×2 (12:45)
[2017-01-06 15:50] VITALS: BP 113/69; PULSE 109; RESP 18; TEMP 98.3; O2SAT 95
--- NOTE | 2017-01-07 14:18 | MD ---
cc: STANLEY PENA M.D. ADMISSION DATE: 01/03/2017 DISCHARGE DATE: 01/06/2017 ADMITTING DIAGNOSIS Severe degenerative osteoarthritis, left knee. DISCHARGE DIAGNOSIS Severe degenerative osteoarthritis, left knee. HISTORY OF PRESENT ILLNESS Mrs. Hernandez is a 51-year-old female who presented to the [facility] for evaluation by Dr. Stanley Pena regarding her severe and progressive left knee pain. The patient states the pain has been present for greater than one year duration for which she has received treatment for this ailment. She notes currently her pain is a severe constant aching sensation aggravated by weightbearing activity. She has no alleviating factors, although the past she has tried medications, bracing, physical therapy, home exercise program, weight loss attempts, as well as corticosteroid injections without significant relief of symptoms. She does have x-ray evidence of severe degenerative osteoarthritis of the left knee. While in the office the patient was counseled on her diagnosis and treatment options. The risks, benefits and indications were discussed. The patient did elect to proceed with surgical intervention to include a left total knee arthroplasty. Date of surgery 01/03/2017, left total knee arthroplasty. POST-OP After surgery the patient was admitted to [facility] where she received appropriate medical management, pain control, DVT prophylaxis as well as physical therapy. DISCHARGE Once being discharged from the hospital the patient has been cleared to go for in-house rehabilitation. She is in stable condition. She may weight bear as tolerated. She is to receive daily dressing changes. The patient has been instructed on appropriate wound care management. She has been provided prescriptions for pain control as well as DVT prophylaxis medication. She has also been provided a follow-up appointment in approximately 2 weeks from her date of surgery. The patient and the patient's have asked appropriate questions which have been answered. The patient has been discharged. Dictated by: Stanley Balderas PA-C MD JAMAAL Willis/MOE /8:29 AM /2:15 PM
[2017-01-16] MEDS ORDERED: IRBE150T49 PO (08:31)
[2017-01-16] MEDS ORDERED: ASPI81CH37 CHEW (08:31)
[2017-01-16] MEDS ORDERED: RANI150T PO (08:31)
[2017-01-16] MEDS ORDERED: ZOLP5TAB3 PO (08:31)
[2017-01-16] MEDS ORDERED: ULTR50TA5 PO (08:31)
[2017-01-16] MEDS ORDERED: SYNT112T PO (08:31)
[2017-01-16] MEDS ORDERED: ONDA4TAB7 PO (08:31)
[2017-01-16] MEDS ORDERED: ALPR0.25 PO (08:31)
[2017-01-16] MEDS ORDERED: CYCL1TAB29 PO (08:31)
== END 2017-01-06 20:26 | DRG 470 ==
LOC: HSDI 01-03 04:57 → N06B 01-03 13:34
PROVIDERS: ADMIT Orthopaedic Surgery Sports Medicine; ATTEND Orthopaedic Surgery Sports Medicine
PROC: 3E0T3CZ (ICD-10-PCS; 2017-01-03)
PROC: 0SRD0J9 Replacement of Left Knee Joint with Synthetic Substitute, Cemented, Open Approach (ICD-10-PCS; principal; 2017-01-03 08:40)
DX: M17.12 Unilateral primary osteoarthritis, left knee (principal); E88.81 Metabolic syndrome and other insulin resistance; I10 Essential (primary) hypertension; E03.9 Hypothyroidism, unspecified; J45.909 Unspecified asthma, uncomplicated; M25.762 Osteophyte, left knee; E78.5 Hyperlipidemia, unspecified; G43.909 Migraine, unspecified, not intractable, without status migrainosus; D72.829 Elevated white blood cell count, unspecified; E66.9 Obesity, unspecified; Z68.30 Body mass index [BMI] 30.0-30.9, adult; Z88.1 Allergy status to other antibiotic agents; Z88.5 Allergy status to narcotic agent; Z88.6 Allergy status to analgesic agent; Z91.040 Latex allergy status
CPT/HCPCS: 73560; 76937; 80048; 85027; 86850; 86900; 86901; 94150; C1776; C9290; J0131; J0735; J1100; J1170; J1200; J1580; J1650; J1885; J2250; J2370; J2405; J2795; J3010; J3370; J7030; J7050; J7120; J8501; L1830

== ENCOUNTER 2016-11-24 10:33 | Emergency (ER) | payer OTHER ==
[~2016-11-24] VITALS: Ht 180.3 cm; Wt 98.0 kg
[~2016-11-24 10:33] MED LIST changes: +CHOL50006 PO; +GLUCTAB PO; +LORA-392 PO; +MAXA5TAB2 PO
[2016-11-24 10:37] VITALS: BP 158/74; PULSE 109; RESP 16; TEMP 97.2; O2SAT 97
[2016-11-24] MEDS ORDERED: MORPHINE SULFATE 4 MG/ML INJ IM ONE (11:00)
[2016-11-24] MEDS ORDERED: ONDANSETRON HCL 4 MG/2 ML VIAL IM ONE (11:00)
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
[2016-11-24 11:58] VITALS: BP 100/59
[2017-01-16] MEDS ORDERED: ZOLP5TAB3 PO (08:31)
[2017-01-16] MEDS ORDERED: ONDA4TAB7 PO (08:31)
[2017-01-16] MEDS ORDERED: SYNT112T PO (08:31)
[2017-01-16] MEDS ORDERED: CYCL1TAB29 PO (08:31)
[2017-01-16] MEDS ORDERED: ALPR0.25 PO (08:31)
[2017-01-16] MEDS ORDERED: ULTR50TA5 PO (08:31)
[2017-01-16] MEDS ORDERED: IRBE150T49 PO (08:31)
[2017-01-16] MEDS ORDERED: ASPI81CH37 CHEW (08:31)
[2017-01-16] MEDS ORDERED: RANI150T PO (08:31)
== END 2016-11-24 12:00 | disposition home or self-care (01) ==
LOC: PHED 10:33
DX: R51 Headache (principal); E11.9 Type 2 diabetes mellitus without complications; I10 Essential (primary) hypertension; E03.9 Hypothyroidism, unspecified; E78.00 Pure hypercholesterolemia, unspecified; I25.2 Old myocardial infarction; Z79.84 Long term (current) use of oral hypoglycemic drugs; Z87.09 Personal history of other diseases of the respiratory system; Z86.59 Personal history of other mental and behavioral disorders; Z86.79 Personal history of other diseases of the circulatory system; Z87.19 Personal history of other diseases of the digestive system; Z86.2 Personal history of diseases of the blood and blood-forming organs and certain disorders involving the immune mechanism; Z87.39 Personal history of other diseases of the musculoskeletal system and connective tissue; Z86.69 Personal history of other diseases of the nervous system and sense organs
CPT/HCPCS: 96372; 99284; J2270; J2405

== ENCOUNTER → 2016-12-02 | Outpatient (CLI) | payer OTHER ==
[~2016-12-02] MED LIST changes: +ALPR0.25 PO; +ASPI81CH37 CHEW; +CHOL1CAP34 PO; -CHOL50006 PO; +COMMODE 3-IN-11 MIS; +CPMMACHINE; +CYCL1TAB29 PO; +DILA2TAB2 PO; +DULE100A INH; +ENOX40P SQ; -LORA-392 PO; +ONDA4TAB7 PO; +RIZA10TA2 PO; +ULTR50TA5 PO; +WALKER WHEELS/F1 MIS
[2016-12-02 09:39] LABS: BACTERIA, URINE RARE /hpf; BLOOD, URINE NEG (NEG); COMMENT (UR) CULT NOT INDICATED; CULTURE IF INDICATED CULT NOT INDICATED; GLUCOSE,URINE NEG (NEG); KETONE, URINE NEG (NEG); MUCUS URINE FEW /lpf (OCC); NITRITE,URINE NEG (NEG); SQUAMOUS EPITHELIAL CELL URINE 3 /hpf (0-5); URINE COLOR YELLOW (YELLW/STRAW)
[2016-12-02 09:51] LABS: APTT (PATIENT) 25.7 SEC (24.3-30.1); INTERNATIONAL NORMALIZED RATIO 0.9 RATIO; PROTHROMBIN TIME - PATIENT 10.2 SEC (9.8-11.6)
[2016-12-02 09:53] LABS: AUTOMATED NEUTROPHIL # 4.4 TH/MM3 (1.8-7.7); BASOPHIL # 0.1 TH/MM3 (0-0.2); BASOPHIL % 1.9 % (0.0-2.0); EOSINOPHIL # 0.3 TH/MM3 (0-0.4); EOSINOPHIL % 3.5 % (0.0-4.0); HEMATOCRIT 43.5 % (35.0-46.0); HEMO FLAGS DIFF FINAL; LYMPH % 26.8 % (9.0-44.0); MEAN CELL VOLUME 90.7 FL (80.0-100.0); MEAN CORPUSCULAR HEMOGLOBIN 30.7 PG (27.0-34.0); MEAN CORPUSCULAR HGB CONC 33.9 % (32.0-36.0); MONO % 7.9 % (0.0-8.0); NEUT % 59.9 % (16.0-70.0); PLATELET COUNT 245 TH/MM3 (150-450); RED BLOOD COUNT 4.79 MIL/MM3 (4.00-5.30); RED CELL DISTRIBUTION WIDTH 13.1 % (11.6-17.2); WHITE BLOOD COUNT 7.4 TH/MM3 (4.0-11.0)
[2016-12-02 10:21] LABS: ALT (GPT) 29 U/L (10-53); ANION GAP 8 MEQ/L (5-15); AST (GOT) 13 U/L (15-37); BICARBONATE 26.8 MEQ/L (21.0-32.0); BLOOD UREA NITROGEN 15 MG/DL (7-18); CHLORIDE 105 MEQ/L (98-107); GLOMERULAR FILTRATION RATE 53 ML/MIN (>89); GLUCOSE,FASTING 120 MG/DL (74-99); SODIUM (NA) 140 MEQ/L (136-145)
[2016-12-02 10:24] LABS: ALKALINE PHOSPHATASE 74 U/L (45-117); TOTAL BILIRUBIN ADULT 0.8 MG/DL (0.2-1.0)
[2016-12-02 10:30] LABS: WESTERGREN SEDIMENTATION RATE 6 mm/hr (0-30)
--- NOTE | 2016-12-02 11:48 | RADRPT ---
EXAM DATE/TIME: 12/02/2016 11:38 [facility] COMPARISON: CHEST PA & LAT, September 08, 2014, 20:21. INDICATIONS : Evaluate for pneumonia, pneumothorax or communicable disease. Pre-op for left knee replacement on Dec. MEDICAL HISTORY : Hypertension. SURGICAL HISTORY : None. ENCOUNTER: Initial ACUITY: 1 day PAIN SCORE: 0/10 LOCATION: Bilateral chest FINDINGS: PA and lateral views of the chest demonstrate the lungs to be symmetrically aerated without evidence of mass, infiltrate or effusion. The cardiomediastinal contours are unremarkable. Osseous structure s are intact. CONCLUSION: No acute disease. Malik Weber MD on December 02, 2016 at 11:46 Board Certified Radiologist. This report was verified electronically.
--- NOTE | 2016-12-02 12:06 | EKG ---
Date Performed: 12/02/2016 Time Performed: 09:34:08 PTAGE: 51 years EKG: Sinus rhythm LOW QRS VOLTAGE IN PRECORDIAL LEADS POSSIBLE INFERIOR MYOCARDIAL INFARCTION, PROBABLY OLD BORDERLINE ECG NO PREVIOUS TRACING DOCTOR: Maxi Gonzalze Interpretating Date/Time 12/02/2016 12:04:05
== END ==
LOC: CPRE 08:52
PROVIDERS: ATTEND Orthopaedic Surgery Sports Medicine
DX: Z01.810 Encounter for preprocedural cardiovascular examination (principal); Z01.811 Encounter for preprocedural respiratory examination; Z01.812 Encounter for preprocedural laboratory examination; Z01.818 Encounter for other preprocedural examination; Z96.60 Presence of unspecified orthopedic joint implant; Z79.01 Long term (current) use of anticoagulants; M25.50 Pain in unspecified joint; M17.12 Unilateral primary osteoarthritis, left knee; R94.31 Abnormal electrocardiogram [ECG] [EKG]
CPT/HCPCS: 36415; 71020; 80053; 81001; 85025; 85610; 85652; 85730; 93005

== ENCOUNTER → 2017-01-02 | Outpatient (CLI) | payer OTHER ==
[~2017-01-02] MED LIST changes: -GLUCTAB PO; -MAXA5TAB2 PO
[2017-01-02 12:21] LABS: AUTOMATED NEUTROPHIL # 5.3 TH/MM3 (1.8-7.7); BASOPHIL # 0.1 TH/MM3 (0-0.2); BASOPHIL % 1.4 % (0.0-2.0); EOSINOPHIL # 0.2 TH/MM3 (0-0.4); HEMATOCRIT 43.2 % (35.0-46.0); HEMO FLAGS DIFF FINAL; LYMPH % 28.5 % (9.0-44.0); LYMPHOCYTE # 2.4 TH/MM3 (1.0-4.8); MEAN CELL VOLUME 90.4 FL (80.0-100.0); MEAN CORPUSCULAR HEMOGLOBIN 31.5 PG (27.0-34.0); MEAN CORPUSCULAR HGB CONC 34.9 % (32.0-36.0); MONO % 5.5 % (0.0-8.0); NEUT % 62.6 % (16.0-70.0); PLATELET COUNT 271 TH/MM3 (150-450); RED BLOOD COUNT 4.78 MIL/MM3 (4.00-5.30); WHITE BLOOD COUNT 8.4 TH/MM3 (4.0-11.0)
[2017-01-02 12:27] LABS: APTT (PATIENT) 24.4 SEC (24.3-30.1); PROTHROMBIN TIME - PATIENT 10.7 SEC (9.8-11.6)
[2017-01-02 12:40] LABS: WESTERGREN SEDIMENTATION RATE 9 mm/hr (0-30)
[2017-01-02 12:43] LABS: ANION GAP 5 MEQ/L (5-15); AST (GOT) 20 U/L (15-37); BICARBONATE 27.5 MEQ/L (21.0-32.0); BLOOD UREA NITROGEN 14 MG/DL (7-18); CHLORIDE 105 MEQ/L (98-107); GLOMERULAR FILTRATION RATE 61 ML/MIN (>89); GLUCOSE,FASTING 102 MG/DL (74-99); POTASSIUM 3.8 MEQ/L (3.5-5.1); SODIUM (NA) 137 MEQ/L (136-145)
[2017-01-02 12:47] LABS: BACTERIA, URINE OCC /hpf; BLOOD, URINE NEG (NEG); COMMENT (UR) CULT NOT INDICATED; CULTURE IF INDICATED CULT NOT INDICATED; GLUCOSE,URINE NEG (NEG); KETONE, URINE NEG (NEG); NITRITE,URINE NEG (NEG); PH, URINE 5.5 (5.0-8.5); SQUAMOUS EPITHELIAL CELL URINE 1 /hpf (0-5); URINE COLOR YELLOW (YELLW/STRAW)
[2017-01-02 12:48] LABS: ALKALINE PHOSPHATASE 81 U/L (45-117); ALT (GPT) 35 U/L (10-53); TOTAL BILIRUBIN ADULT 0.7 MG/DL (0.2-1.0)
== END ==
LOC: CPRE 11:38
PROVIDERS: ATTEND Orthopaedic Surgery Sports Medicine
DX: Z01.812 Encounter for preprocedural laboratory examination (principal); Z01.818 Encounter for other preprocedural examination; Z01.810 Encounter for preprocedural cardiovascular examination; Z96.60 Presence of unspecified orthopedic joint implant; Z79.01 Long term (current) use of anticoagulants; M17.12 Unilateral primary osteoarthritis, left knee; M25.50 Pain in unspecified joint
CPT/HCPCS: 36415; 80053; 81001; 85025; 85610; 85652; 85730

== ENCOUNTER → 2017-02-06 | Outpatient (CLI) | payer OTHER ==
[~2017-02-06] MED LIST changes: -DILA2TAB2 PO; -ENOX40P SQ; -TRAM50TA PO; -XOPEAER4 INH
[2017-02-06 13:29] LABS: GLUCOSE,FASTING 103 MG/DL (74-99)
[2017-02-06 13:44] LABS: FREE T4 1.44 NG/DL (0.76-1.46)
[2017-02-06 16:31] LABS: HEMOGLOBIN A1a 0.9 %; HEMOGLOBIN A1b 0.9 %; HEMOGLOBIN Ao 86.5 %; HEMOGLOBIN F 0.8 %; HEMOGLOBIN LA1C 1.9 %; HEMOGLOBIN P3 3.3 %
== END ==
LOC: PLAB 09:57
DX: E03.9 Hypothyroidism, unspecified (principal); R73.01 Impaired fasting glucose
CPT/HCPCS: 36415; 82947; 83036; 84439; 84443

== ENCOUNTER → 2017-03-27 | Outpatient (CLI) | payer OTHER ==
[~2017-03-27] MED LIST changes: -ASPI81CH37 CHEW; +ASPI81CH6 CHEW; +CYCL10TA PO; -CYCL1TAB29 PO; +TRAM50 PO; -ULTR50TA5 PO
[2017-03-27 13:34] LABS: ALT (GPT) 31 U/L (10-53); ANION GAP 9 MEQ/L (5-15); AST (GOT) 15 U/L (15-37); BICARBONATE 24.1 MEQ/L (21.0-32.0); BLOOD UREA NITROGEN 17 MG/DL (7-18); CHLORIDE 107 MEQ/L (98-107); GLOMERULAR FILTRATION RATE 56 ML/MIN (>89); GLUCOSE,FASTING 127 MG/DL (74-99); SODIUM (NA) 140 MEQ/L (136-145)
[2017-03-27 13:36] LABS: ALKALINE PHOSPHATASE 80 U/L (45-117); HDL CHOLESTEROL 44.1 MG/DL (40.0-60.0); LDL CHOLESTEROL 173 MG/DL (0-99); TOTAL BILIRUBIN ADULT 0.7 MG/DL (0.2-1.0)
== END ==
LOC: PLAB 10:17
PROVIDERS: ATTEND Family Medicine
DX: I10 Essential (primary) hypertension (principal); E78.5 Hyperlipidemia, unspecified; E55.9 Vitamin D deficiency, unspecified
CPT/HCPCS: 36415; 80053; 80061; 82306

== ENCOUNTER → 2017-05-15 | Outpatient (CLI) | payer OTHER ==
[2017-05-15 14:04] LABS: BASOPHIL # 0.1 TH/MM3 (0-0.2); BASOPHIL % 0.9 % (0.0-2.0); EOSINOPHIL # 0.3 TH/MM3 (0-0.4); EOSINOPHIL % 4.7 % (0.0-4.0); HEMATOCRIT 41.6 % (35.0-46.0); HEMOGLOBIN 14.6 GM/DL (11.6-15.3); LYMPH % 31.7 % (9.0-44.0); LYMPHOCYTE # 2.3 TH/MM3 (1.0-4.8); MEAN CELL VOLUME 89.1 FL (80.0-100.0); MEAN CORPUSCULAR HEMOGLOBIN 31.2 PG (27.0-34.0); MEAN PLATELET VOLUME 8.5 FL (7.0-11.0); MONO % 7.6 % (0.0-8.0); MONOCYTE # 0.5 TH/MM3 (0-0.9); NEUT % 55.1 % (16.0-70.0); PLATELET COUNT 237 TH/MM3 (150-450); RED BLOOD COUNT 4.67 MIL/MM3 (4.00-5.30); RED CELL DISTRIBUTION WIDTH 13.1 % (11.6-17.2); WHITE BLOOD COUNT 7.2 TH/MM3 (4.0-11.0)
[2017-05-15 14:26] LABS: ALBUMIN 3.6 GM/DL (3.4-5.0); AST (GOT) 16 U/L (15-37); BLOOD UREA NITROGEN 17 MG/DL (7-18); CALCIUM 9.3 MG/DL (8.5-10.1); CHLORIDE 105 MEQ/L (98-107); CREATININE 1.05 MG/DL (0.50-1.00); GLOMERULAR FILTRATION RATE 55 ML/MIN (>89); GLUCOSE,FASTING 109 MG/DL (74-99); SODIUM (NA) 138 MEQ/L (136-145)
[2017-05-15 14:27] LABS: CHOLESTEROL 213 MG/DL (120-200)
[2017-05-15 14:52] LABS: ALKALINE PHOSPHATASE 71 U/L (45-117); ALT (GPT) 27 U/L (10-53); CHOLESTEROL/ HDL RATIO 5.33 RATIO; FOLATE 10.3 NG/ML (3.1-17.5); HDL CHOLESTEROL 39.9 MG/DL (40.0-60.0); LDL CHOLESTEROL 154 MG/DL (0-99); TOTAL BILIRUBIN ADULT 0.7 MG/DL (0.2-1.0); TOTAL PROTEIN 6.9 GM/DL (6.4-8.2); TRIGLYCERIDES 95 MG/DL (42-150)
[2017-05-15 17:26] LABS: HEMOGLOBIN A1C 5.9 % (4.3-6.0)
== END ==
LOC: PLAB 08:32
PROVIDERS: ATTEND Family Medicine
DX: E78.5 Hyperlipidemia, unspecified (principal); E55.9 Vitamin D deficiency, unspecified; R73.01 Impaired fasting glucose; R53.83 Other fatigue
CPT/HCPCS: 36415; 80053; 80061; 82306; 82607; 82746; 83036; 85025

== ENCOUNTER → 2017-06-05 | Outpatient (CLI) | payer OTHER ==
[2017-06-05 13:48] LABS: ALBUMIN 3.7 GM/DL (3.4-5.0); AST (GOT) 20 U/L (15-37); BICARBONATE 26.3 MEQ/L (21.0-32.0); BLOOD UREA NITROGEN 15 MG/DL (7-18); CALCIUM 9.3 MG/DL (8.5-10.1); CHLORIDE 104 MEQ/L (98-107); CREATININE 0.93 MG/DL (0.50-1.00); GLOMERULAR FILTRATION RATE 64 ML/MIN (>89); GLUCOSE,FASTING 122 MG/DL (74-99); SODIUM (NA) 138 MEQ/L (136-145)
[2017-06-05 13:53] LABS: ALKALINE PHOSPHATASE 78 U/L (45-117); ALT (GPT) 29 U/L (10-53); CHOLESTEROL 230 MG/DL (120-200); CHOLESTEROL/ HDL RATIO 5.59 RATIO; HDL CHOLESTEROL 41.1 MG/DL (40.0-60.0); LDL CHOLESTEROL 171 MG/DL (0-99); TOTAL BILIRUBIN ADULT 0.6 MG/DL (0.2-1.0); TOTAL PROTEIN 7.3 GM/DL (6.4-8.2); TRIGLYCERIDES 89 MG/DL (42-150)
== END ==
LOC: PLAB 09:59
PROVIDERS: ATTEND Family Medicine
DX: I10 Essential (primary) hypertension (principal); E78.5 Hyperlipidemia, unspecified; E55.9 Vitamin D deficiency, unspecified
CPT/HCPCS: 36415; 80053; 80061; 82306

== ENCOUNTER → 2017-07-04 | Outpatient (CLI) | payer OTHER ==
[2017-07-04 10:39] LABS: AUTOMATED NEUTROPHIL # 5.4 TH/MM3 (1.8-7.7); BASOPHIL # 0.1 TH/MM3 (0-0.2); BASOPHIL % 1.1 % (0.0-2.0); EOSINOPHIL # 0.4 TH/MM3 (0-0.4); EOSINOPHIL % 4.3 % (0.0-4.0); HEMATOCRIT 40.6 % (35.0-46.0); HEMOGLOBIN 13.9 GM/DL (11.6-15.3); LYMPH % 24.9 % (9.0-44.0); LYMPHOCYTE # 2.2 TH/MM3 (1.0-4.8); MEAN CELL VOLUME 90.3 FL (80.0-100.0); MEAN CORPUSCULAR HEMOGLOBIN 30.9 PG (27.0-34.0); MEAN CORPUSCULAR HGB CONC 34.2 % (32.0-36.0); MEAN PLATELET VOLUME 8.5 FL (7.0-11.0); MONO % 7.4 % (0.0-8.0); MONOCYTE # 0.6 TH/MM3 (0-0.9); NEUT % 62.3 % (16.0-70.0); PLATELET COUNT 267 TH/MM3 (150-450); RED CELL DISTRIBUTION WIDTH 13.4 % (11.6-17.2); WHITE BLOOD COUNT 8.7 TH/MM3 (4.0-11.0)
[2017-07-04 10:56] LABS: ALBUMIN 3.3 GM/DL (3.4-5.0)
[2017-07-04 11:00] LABS: DIRECT BILIRUBIN ADULT 0.1 MG/DL (0.0-0.2); INDIRECT BILIRUBIN 0.3 MG/DL (0.0-0.8); TOTAL BILIRUBIN ADULT 0.4 MG/DL (0.2-1.0)
== END ==
LOC: PLAB 07:28
PROVIDERS: ATTEND Family Medicine
DX: E78.5 Hyperlipidemia, unspecified (principal); R53.83 Other fatigue
CPT/HCPCS: 36415; 80076; 85025

== ENCOUNTER 2017-07-05 23:45 | Emergency (ER) | payer OTHER ==
[~2017-07-05] VITALS: Ht 177.8 cm; Wt 100.7 kg
[2017-07-05 23:48] VITALS: BP 149/84; PULSE 110; RESP 18; TEMP 98.3; O2SAT 98
[2017-07-06 00:48] LABS: BILIRUBIN, URINE NEG (NEG); BLOOD, URINE TRACE (NEG); GLUCOSE,URINE NEG (NEG); KETONE, URINE NEG (NEG); NITRITE,URINE NEG (NEG); URINE COLOR YELLOW (YELLW/STRAW); URINE LEUKOCYTE ESTERASE NEG (NEG)
[2017-07-06 00:52] LABS: BACTERIA, URINE RARE /hpf; RBC, URINE 0-3 /hpf (0-3); SQUAMOUS EPITHELIAL CELL URINE 0-5 /hpf (0-5); WBC, URINE 0-2 /hpf (0-5)
[2017-07-06 02:27] VITALS: BP 166/82; PULSE 108; RESP 20
[2017-07-06 03:30] VITALS: BP 166/82; PULSE 89; RESP 20; O2SAT 97
== END 2017-07-06 04:37 | disposition left against medical advice (07) ==
LOC: PHED 23:45
DX: R05 Cough (principal)
CPT/HCPCS: 81001; 99281

== ENCOUNTER 2017-07-17 10:55 | Inpatient (IN) | payer OTHER ==
[~2017-07-17] VITALS: Ht 177.8 cm; Wt 100.7 kg
[2017-07-17] VITALS (7 sets, daily range): BP systolic 111–135; BP diastolic 71–82; PULSE 82–106; RESP 18–20; TEMP 97.6–100.1; O2SAT 95–98
[~2017-07-17 10:55] MED LIST changes: -COMMODE 3-IN-11 MIS; -CPMMACHINE; -CYCL10TA PO; -DULE100A INH; -ONDA4TAB7 PO; -RANI150T PO; -RIZA10TA2 PO; -WALKER WHEELS/F1 MIS
[2017-07-17] MEDS ORDERED: XOPEAER4 INH (11:16)
[2017-07-17] MEDS ORDERED: RIZA10TA2 PO (11:16)
[2017-07-17] MEDS ORDERED: ZANT150T2 PO (11:16)
[2017-07-17] MEDS ORDERED: SODIUM CHLOR 0.9% 1000 ML INJ 1,000 ML IV SCH (11:22)
[2017-07-17] MEDS ORDERED: HYDROmorphone HCL PF 2 MG/ML VIAL IVS ONE (11:30)
[2017-07-17] MEDS ORDERED: SODIUM CHLORIDE 0.9% FLUSH 10 ML FLUSH IV FLUSH PRN (11:30)
[2017-07-17] MEDS ORDERED: DICYCLOMINE HCL 20 MG/2 ML VIAL IM ONE (11:30)
[2017-07-17 11:36] LABS: AUTOMATED NEUTROPHIL # 10.8 TH/MM3 (1.8-7.7); BASOPHIL # 0.1 TH/MM3 (0-0.2); BASOPHIL % 0.6 % (0.0-2.0); EOSINOPHIL # 0.2 TH/MM3 (0-0.4); EOSINOPHIL % 1.4 % (0.0-4.0); HEMATOCRIT 40.9 % (35.0-46.0); HEMOGLOBIN 13.8 GM/DL (11.6-15.3); LYMPH % 13.3 % (9.0-44.0); LYMPHOCYTE # 1.8 TH/MM3 (1.0-4.8); MEAN CELL VOLUME 89.5 FL (80.0-100.0); MEAN CORPUSCULAR HEMOGLOBIN 30.2 PG (27.0-34.0); MEAN CORPUSCULAR HGB CONC 33.7 % (32.0-36.0); MEAN PLATELET VOLUME 7.7 FL (7.0-11.0); MONO % 5.2 % (0.0-8.0); MONOCYTE # 0.7 TH/MM3 (0-0.9); NEUT % 79.5 % (16.0-70.0); PLATELET COUNT 340 TH/MM3 (150-450); RED BLOOD COUNT 4.57 MIL/MM3 (4.00-5.30); WHITE BLOOD COUNT 13.6 TH/MM3 (4.0-11.0)
[2017-07-17] MEDS ORDERED: ONDANSETRON HCL 4 MG/2 ML VIAL IV PUSH ONE ×2 (11:45→13:00)
[2017-07-17 12:09] LABS: CHLORIDE 103 MEQ/L (98-107); SODIUM (NA) 138 MEQ/L (136-145)
[2017-07-17 12:12] LABS: ALBUMIN 3.2 GM/DL (3.4-5.0); BICARBONATE 25.7 MEQ/L (21.0-32.0); BLOOD UREA NITROGEN 11 MG/DL (7-18); CALCIUM 9.5 MG/DL (8.5-10.1); GLUCOSE,RANDOM 120 MG/DL (74-106)
[2017-07-17 12:15] LABS: PROTHROMBIN TIME - PATIENT 10.5 SEC (9.8-11.6)
[2017-07-17] MEDS ORDERED: KETOROLAC TROMETHAMINE 30 MG/ML (IVP) VIAL IV PUSH ONE (12:15)
[2017-07-17 12:16] LABS: ALT (GPT) 22 U/L (10-53); AST (GOT) 11 U/L (15-37); GLOMERULAR FILTRATION RATE 58 ML/MIN (>89)
[2017-07-17 12:17] LABS: TOTAL PROTEIN 7.3 GM/DL (6.4-8.2)
[2017-07-17 12:18] LABS: BILIRUBIN, URINE NEG (NEG); BLOOD, URINE NEG (NEG); GLUCOSE,URINE NEG (NEG); KETONE, URINE NEG (NEG); NITRITE,URINE NEG (NEG); PH, URINE 7.5 (5.0-8.5); URINE COLOR YELLOW (YELLW/STRAW); URINE LEUKOCYTE ESTERASE NEG (NEG)
[2017-07-17 12:18] LABS: ALKALINE PHOSPHATASE 81 U/L (45-117)
[2017-07-17 12:22] LABS: BACTERIA, URINE RARE /hpf; RBC, URINE 0-3 /hpf (0-3); SQUAMOUS EPITHELIAL CELL URINE 0-5 /hpf (0-5); WBC, URINE 0-2 /hpf (0-5)
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
[2017-07-17] MEDS ORDERED: IOHEXOL 350 MG/ML 10 ML VIAL (for RAD DIAG) IVCONTRAST ONE (12:36)
[2017-07-17] MEDS ORDERED: HYDROmorphone HCL PF 2 MG/ML VIAL IV PUSH ONE (13:00)
[2017-07-17] MEDS ORDERED: HYDROmorphone HCL PF 1 MG/ML VIAL IV PUSH ONE (13:00)
--- NOTE | 2017-07-17 13:05 | RADRPT ---
EXAM DATE/TIME: 07/17/2017 12:23 [facility] COMPARISON: No previous studies available for comparison. INDICATIONS : Lower abdominal pain with nausea and vomiting. IV CONTRAST: 90 cc Omnipaque 350 (iohexol) IV ORAL CONTRAST: No oral contrast ingested. RADIATION DOSE: 18.81 CTDIvol (mGy) MEDICAL HISTORY : Chronic obstructive pulmonary disease. Diabetes mellitus type 2. [place] Palsy. Asthma. SURGICAL HISTORY : Tubal ligation. Hysterectomy. section. ENCOUNTER: Initial ACUITY: 1 day PAIN SCALE: 8/10 LOCATION: Bilateral lower quadrant TECHNIQUE: Volumetric scanning of the abdomen and pelvis was performed. Using automated exposure control and ad justment of the mA and/or kV according to patient size, radiation dose was kept as low as reasonably achievable to obtain optimal diagnostic quality images. DICOM format image data is available electro nically for review and comparison. FINDINGS: LOWER LUNGS: The visualized lower lungs are clear. LIVER: Homogeneous fatty density without lesion. There is no dilation of the biliary tree. No calcified ga llstones. SPLEEN: Normal size without lesion. PANCREAS: Within normal limits. KIDNEYS: Normal in size and shape. There is no mass, stone or hydronephrosis. ADRENAL GLANDS: Within normal limits. VASCULAR: There is no aortic aneurysm. BOWEL/MESENTERY: There is moderate diverticulosis of the left side of the colon. Areas of mild to moderate acute diver ticulitis are seen at the level of the mid descending colon and also at the level of the proximal and mid sigmoid colon. No abscess, perforation or obstruction. ABDOMINAL WALL: Within normal limits. RETROPERITONEUM: There is no lymphadenopathy. BLADDER: No wall thickening or mass. REPRODUCTIVE: Within normal limits. INGUINAL: There is no lymphadenopathy or hernia. MUSCULOSKELETAL: Within normal limits for patient age. CONCLUSION: 1. Several foci of mild to moderate uncomplicated acute diverticulitis involving the descending and s igmoid portions of the colon. 2. Fatty liver. Michi Beard MD on July 17, 2017 at 13:01 Board Certified Radiologist. This report was verified electronically.
[2017-07-17] MEDS ORDERED: ZOLPIDEM TARTRATE 5 MG TAB PO PRN (13:30)
[2017-07-17] MEDS ORDERED: metroNIDAZOLE 500 MG INJ 100 ML IV ONE (13:30)
[2017-07-17] MEDS ORDERED: NALOXONE HCL 0.4 MG/ML AMP IV PUSH PRN (13:30)
[2017-07-17] MEDS ORDERED: CIPROFLOXACIN 400 MG PREMIX 200 ML IV ONE (13:30)
[2017-07-17] MEDS: SODIUM CHLOR 0.9% 1000 ML INJ 1,000 ML IV SCH ×2 (13:50→22:28)
[2017-07-17] MEDS ORDERED: RIZATRIPTAN PO SCH (14:00)
[2017-07-17] MEDS ORDERED: HYDROmorphone HCL PF 1 MG/ML VIAL IV PUSH PRN (14:15)
--- NOTE | 2017-07-17 14:23 | HHI.HP ---
[facility] Service [facility] Primary Care Physician Vinny Quinteros MD, PhD Admission Diagnosis Diverticulitis Diagnoses: Chief Complaint: Nausea and vomiting abdominal pain Travel History International Travel<30 Days: No Contact w/Intl Traveler <30 Da: No Traveled to Known Affected Are: No Sepsis Criteria SIRS Criteria (2 or more): Heart rate over 90, WBC > 58547, < 4000 or > 10% bands Sepsis Criteria (SIRS+source): Infect source susp/known History of Present Illness Patient is a 51-year-old female with multiple medical problems and multiple complaints. She complains of about a week of nausea and vomiting with decreased oral intake. She had been feeling very weak and noted that her stomach became more bloated. The vomit was nonbloody and there has been no hematochezia or melena. Patient comes into the emergency room for further evaluation is found to have mild abdominal bloating with some white cell count and elevated temperature and tachycardia. CT of abdomen pelvis was done which did show some diverticulitis. Patient reports no previous episodes of diverticulitis. Recently she started Lipitor but it was discontinued because of side effects (patient has multiple side effects and allergies listed in her medical record). Patient is in the mid abdomen and radiates into the back. There has been no fevers or chills. Patient has a leukocytosis and temperature of 100.1 as well as a heart rate of 106. She has been recommended for further observation because of her nausea and vomiting and inability to keep medications down and apparent acute sepsis. Review of Systems Constitutional: DENIES: Diaphoretic episodes, Fatigue, Fever, Weight gain, Weight loss, Chills, Dizziness, Change in appetite, Night Sweats Endocrine: DENIES: Abnorml menstrual pattern, Heat/cold intolerance, Polydipsia , Polyuria, Polyphagia Eyes: DENIES: Blurred vision, Diplopia, Eye inflammation, Eye pain, Vision loss , Photosensitivity, Double Vision Ears, nose, mouth, throat: DENIES: Tinnitus, Hearing loss, Vertigo, Nasal discharge, Oral lesions, Throat pain, Hoarseness, Ear Pain, Running Nose, Epistaxis, Sinus Pain, Toothache, Odynophagia Respiratory: DENIES: Apneas, Cough, Snoring, Wheezing, Hemoptysis, Sputum production, Shortness of breath Cardiovascular: DENIES: Chest pain, Palpitations, Syncope, Dyspnea on Exertion , PND, Lower Extremity Edema, Orthopnea, Claudication Gastrointestinal: COMPLAINS OF: Abdominal pain, Nausea, Vomiting Genitourinary: DENIES: Abnormal vaginal bleeding, Dysmenorrhea, Dyspareunia, Sexual dysfunction, Urinary frequency, Urinary incontinence, Urgency, Hematuria , Dysuria, Nocturia, Vaginal discharge Musculoskeletal: DENIES: Joint pain, Muscle aches, Stiffness, Joint Swelling, Back pain, Neck pain Integumentary: DENIES: Abnormal pigmentation, Pruritus, Rash, Nail changes, Breast masses, Breast skin changes, Nipple discharge Hematologic/lymphatic: DENIES: Bruising, Lymphadenopathy Neurologic: DENIES: Abnormal gait, Headache, Localized weakness, Paresthesias, Seizures, Speech Problems, Tremor, Poor Balance Psychiatric: DENIES: Anxiety, Confusion, Mood changes, Depression, Hallucinations, Agitation, Suicidal Ideation, Homicidal Ideation, Delusions Except as stated in HPI: all other systems reviewed are Neg Past Family Social History Past Medical History Migraine headaches Hypertension Hypothyroidism Anxiety Asthma Past Surgical History , partial hysterectomy, knee surgery Reported Medications Reviewed in the EMR, patient takes ranitidine as needed Allergies: Coded Allergies: acetaminophen (Verified Allergy, Severe, Rash, 01/03/17) nausea vomiting rash adhesive (Verified Allergy, Severe, red rash PAPER TAPE ONLY, 01/03/17) amoxicillin (Verified Allergy, Severe, RASH, VOMITTING, DIARRHEA, 01/03/17) cefepime (Verified Allergy, Severe, RASH, VOMITTING, DIARRHEA, 01/03/17) cefprozil (Verified Allergy, Severe, Anaphylaxis, 01/03/17) ceftaroline fosamil (Verified Allergy, Severe, RASH, VOMITTING, DIARRHEA, 01/03/17) cefuroxime (Verified Allergy, Severe, RASH, VOMITTING, 01/03/17) clavulanic acid (Verified Allergy, Severe, RASH, VOMITTING, DIARRHEA, 01/03) codeine (Verified Allergy, Severe, NAUSEA,RASH,THINGS CRAWLING ON ME , ) hydrocodone (Verified Allergy, Severe, NAUSEA,ITCHING, 01/03/17) latex (Verified Allergy, Severe, RASH, HIVES, 01/03/17) morphine (Verified Allergy, Severe, Itching, 01/03/17) CODED WHEN USED LAST nickel (Verified Allergy, Severe, 01/03/17) oxycodone (Verified Allergy, Severe, rash,shakey,shortnes of breath, HALLUCINATIONS, 01/03/17) penicillin G (Verified Allergy, Severe, ANAPHYLAXIS, 01/03/17) perfume (Verified Allergy, Severe, 01/03/17) insulin aspart (Verified Adverse Reaction, Severe, "BODY DOES NOT PROCESS INSULIN" "HYPERINSULIN ANEMIA", 01/03/17) insulin aspart protamine human (Verified Adverse Reaction, Severe, "BODY DOES NOT PROCESS INSULIN" "HYPERINSULIN ANEMIA", 01/03/17) insulin detemir (Verified Adverse Reaction, Severe, "BODY DOES NOT PROCESS INSULIN" "HYPERINSULIN ANEMIA", 01/03/17) insulin glargine (Verified Adverse Reaction, Severe, "BODY DOES NOT PROCESS INSULIN" "HYPERINSULIN ANEMIA", 01/03/17) insulin isophane (NPH) (Verified Adverse Reaction, Severe, "BODY DOES NOT PROCESS INSULIN" "HYPERINSULIN ANEMIA", 01/03/17) insulin lispro (Verified Adverse Reaction, Severe, "BODY DOES NOT PROCESS INSULIN" "HYPERINSULIN ANEMIA", 01/03/17) insulin regular (Verified Adverse Reaction, Severe, "BODY DOES NOT PROCESS INSULIN" "HYPERINSULIN ANEMIA", 01/03/17) Uncoded Allergies: SILK TAPE (Allergy, Severe, SWELLS, 11/29/08) Active Ordered Medications Reviewed in the EMR Family History Mother from dementia, father at 46 from complications of alcoholism and cardiac disease Social History No current tobacco alcohol dependency, 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 Normocephalic. No temporal or scalp tenderness. EYES: Pupils equal round and reactive. Extraocular motions intact. No scleral icterus. No injection or drainage. ENT: Nose without bleeding, purulent drainage or septal hematoma. Throat without erythema, tonsillar hypertrophy or exudate. Uvula midline. Airway patent. NECK: Trachea midline. No JVD or lymphadenopathy. Supple, nontender, no meningeal signs. CARDIOVASCULAR: Regular rate and rhythm without murmurs, gallops, or rubs. RESPIRATORY: Clear to auscultation. Breath sounds equal bilaterally. No wheezes , rales, or rhonchi. GASTROINTESTINAL: Abdomen soft, non-tender,mildly distended. No hepato- splenomegaly, or palpable masses. No guarding. hypoactive bs MUSCULOSKELETAL: Extremities without clubbing, cyanosis, or edema. No joint tenderness, effusion, or edema noted. No calf tenderness. Negative Homans sign bilaterally. NEUROLOGICAL: Awake and alert. Cranial nerves II through XII intact. Motor and sensory grossly within normal limits. Five out of 5 muscle strength in all muscle groups. Normal speech. Laboratory Laboratory Tests Test 07/17/17 11:21 07/17/17 12:10 White Blood Count 13.6 Red Blood Count 4.57 Hemoglobin 13.8 Bedside Hemoglobin Hematocrit 40.9 Bedside Hematocrit Mean Corpuscular Volume 89.5 Mean Corpuscular Hemoglobin 30.2 Mean Corpuscular Hemoglobin Concent 33.7 Red Cell Distribution Width 12.0 Platelet Count 340 Mean Platelet Volume 7.7 Neutrophils (%) (Auto) 79.5 Lymphocytes (%) (Auto) 13.3 Monocytes (%) (Auto) 5.2 Eosinophils (%) (Auto) 1.4 Basophils (%) (Auto) 0.6 Neutrophils # (Auto) 10.8 Lymphocytes # (Auto) 1.8 Monocytes # (Auto) 0.7 Eosinophils # (Auto) 0.2 Basophils # (Auto) 0.1 CBC Comment DIFF FINAL Differential Comment Prothrombin Time 10.5 Prothromb Time International Ratio 1.0 Activated Partial Thromboplast Time 24.8 Bedside Sodium 139 Blood Urea Nitrogen 11 Creatinine 1.00 Random Glucose 120 Total Protein 7.3 Albumin 3.2 Calcium Level 9.5 Alkaline Phosphatase 81 Aspartate Amino Transf (AST/SGOT) 11 Alanine Aminotransferase (ALT/SGPT) 22 Total Bilirubin 1.0 Sodium Level 138 Potassium Level 3.9 Chloride Level 103 Carbon Dioxide Level 25.7 Bedside Potassium 3.9 Bedside Chloride 100 Anion Gap 9 Bedside Blood Urea Nitrogen 11 Bedside Creatinine 1.1 Estimat Glomerular Filtration Rate 58 Bedside Glucose 119 Lactic Acid Level 1.2 Lipase 149 Urine Color YELLOW Urine Turbidity CLEAR Urine pH 7.5 Urine Specific [place] 1.015 Urine Protein NEG Urine Glucose (UA) NEG Urine Ketones NEG Urine Occult Blood NEG Urine Nitrite NEG Urine Bilirubin NEG Urine Urobilinogen 0.2 Urine Leukocyte Esterase NEG Urine RBC 0-3 Urine WBC 0-2 Urine Squamous Epithelial Cells 0-5 Urine Bacteria RARE Microscopic Urinalysis Comment CULT NOT INDICATED Result Diagram: 07/17/17 1121 07/17/17 1121 Imaging Last Impressions Abdomen/Pelvis CT 07/17/17 1122 Signed Impressions: Service Date/Time: July 12:23 - CONCLUSION: 1. Several foci of mild to moderate uncomplicated acute diverticulitis involving the descending and sigmoid portions of the colon. 2. Fatty liver. Michi Beard MD Septic Shock Reassessment Septic shock perfusion: reassessment completed Caprini VTE Risk Assessment Caprini VTE Risk Assessment: No/Low Risk (score <= 1) Caprini Risk Assessment Model Point Value = 1 Point Value = 2 Point Value = 3 Point Value = 5 Age 41-60 Minor surgery BMI > 25 kg/m2 Swollen legs Varicose veins or History of unexplained or recurrent spontaneous Oral contraceptives or hormone replacement Sepsis (< 1 month) Serious lung disease, including pneumonia (< 1 month) Abnormal pulmonary function Acute myocardial infarction Congestive heart failure (< 1 month) History of inflammatory bowel disease Medical patient at bed rest Age 61-74 Arthroscopic surgery Major open surgery (> 45 min) Laparoscopic surgery (> 45 min) Malignancy Confined to bed (> 72 hours) Immobilizing plaster cast Central venous access Age >= 75 History of VTE Family history of VTE Factor V Leiden Prothrombin [id number] Lupus anticoagulant Anticardiolipin antibodies Elevated serum homocysteine Heparin-induced thrombocytopenia Other congenital or acquired thrombophilia Stroke (< 1 month) Elective arthroplasty Hip, pelvis, or leg fracture Acute spinal cord injury (< 1 month) Prophylaxis Regimen Total Risk Factor Score Risk Level Prophylaxis Regimen 0-1 Low Early ambulation 2 Moderate Order ONE of the following: *Sequential Compression Device (SCD) *Heparin 5000 units SQ BID 3-4 Higher Order ONE of the following medications: *Heparin 5000 units SQ TID *Enoxaparin/Lovenox 40 mg SQ daily (WT < 150 kg, CrCl > 30 mL/min) *Enoxaparin/Lovenox 30 mg SQ daily (WT < 150 kg, CrCl > 10-29 mL/min) *Enoxaparin/Lovenox 30 mg SQ BID (WT < 150 kg, CrCl > 30 mL/min) AND/OR *Sequential Compression Device (SCD) 5 or more Highest Order ONE of the following medications: *Heparin 5000 units SQ TID (Preferred with Epidurals) *Enoxaparin/Lovenox 40 mg SQ daily (WT < 150 kg, CrCl > 30 mL/min) *Enoxaparin/Lovenox 30 mg SQ daily (WT < 150 kg, CrCl > 10-29 mL/min) *Enoxaparin/Lovenox 30 mg SQ BID (WT < 150 kg, CrCl > 30 mL/min) AND *Sequential Compression Device (SCD) Assessment and Plan Problem List: (1) Diverticulitis ICD Code: K57.92 - Diverticulitis of intestine, part unspecified, without perforation or abscess without bleeding Status: Acute Plan: Patient appears quite septic with fever Leukocytosis Acute findings on CT with diverticulitis Continue with IV antibiotic IV pain meds N.p.o. for now with clear liquids in the morning Assessment and Plan We will continue with treatment plan Also continue management for her asthma and hypertension with her home medications Continue Synthroid Code Status full code Discussed Condition With patient ERMD Physician Certification 2 Midnight Certification Type: Admission for Inpatient Services Order for Inpatient Services The services are ordered in accordance with Medicare regulations or non- Medicare payer requirements, as applicable. In the case of services not specified as inpatient-only, they are appropriately provided as inpatient services in accordance with the 2-midnight benchmark. Estimated LOS (days): 3 3 days is the estimated time the patient will need to remain in the hospital, assuming treatment plan goals are met and no additional complications. Post-Hospital Plan: Home Olena Barclay MD Jul 17, 2017 14:23
[2017-07-17] MEDS ORDERED: XOPENEX INH SCH (16:00)
[2017-07-17] MEDS ORDERED: RIZATRIPTAN 10 MG PO PRN (16:00)
[2017-07-17] MEDS ORDERED: DULERA INH SCH (21:00)
[2017-07-17] MEDS: SODIUM CHLORIDE 0.9% FLUSH 10 ML FLUSH IV FLUSH SCH (21:35)
[2017-07-17] MEDS: ALPRAZolam 0.25 MG TAB PO SCH (21:39)
[2017-07-17] MEDS: FAMOTIDINE 20 MG TAB PO SCH (21:39)
[2017-07-17] MEDS: ASPIRIN 81 MG CHEW TAB CHEW SCH (21:39)
[2017-07-17] MEDS: ONDANSETRON HCL 4 MG/2 ML VIAL IV PUSH PRN (21:39)
[2017-07-17] MEDS: HYDROmorphone HCL PF 2 MG/ML VIAL IV PRN (21:53)
[2017-07-17] MEDS ORDERED: NS IV PRN (22:00)
[2017-07-17] MEDS ORDERED: HYDROMORPHONE IV PRN (22:00)
[2017-07-17] MEDS: metroNIDAZOLE 500 MG INJ 100 ML IV SCH (22:27)
[2017-07-18] VITALS: BP 103/52; PULSE 91; RESP 20; TEMP 98.3; O2SAT 93
[2017-07-18] MEDS ORDERED: CIPROFLOXACIN 500 MG TAB PO SCH (02:00)
[2017-07-18] MEDS: HYDROmorphone HCL PF 2 MG/ML VIAL IV PRN ×2 (02:04→21:39)
[2017-07-18] MEDS: CIPROFLOXACIN 400 MG PREMIX 200 ML IV SCH ×2 (02:04→13:58)
[2017-07-18] MEDS: ONDANSETRON HCL 4 MG/2 ML VIAL IV PUSH PRN ×3 (03:23→21:38)
[2017-07-18] MEDS: LEVOTHYROXINE SODIUM 112 MCG TAB PO SCH (05:58)
[2017-07-18] MEDS: traMADol HCL 50 MG TAB PO PRN (06:11)
[2017-07-18] MEDS: metroNIDAZOLE 500 MG INJ 100 ML IV SCH (06:12)
[2017-07-18 07:01] LABS: AUTOMATED NEUTROPHIL # 9.6 TH/MM3 (1.8-7.7); BASOPHIL # 0.1 TH/MM3 (0-0.2); BASOPHIL % 0.6 % (0.0-2.0); EOSINOPHIL # 0.1 TH/MM3 (0-0.4); EOSINOPHIL % 1.2 % (0.0-4.0); HEMATOCRIT 35.3 % (35.0-46.0); HEMOGLOBIN 12.1 GM/DL (11.6-15.3); LYMPH % 9.4 % (9.0-44.0); LYMPHOCYTE # 1.1 TH/MM3 (1.0-4.8); MEAN CELL VOLUME 89.5 FL (80.0-100.0); MEAN CORPUSCULAR HEMOGLOBIN 30.8 PG (27.0-34.0); MEAN CORPUSCULAR HGB CONC 34.4 % (32.0-36.0); MEAN PLATELET VOLUME 8.1 FL (7.0-11.0); MONO % 5.9 % (0.0-8.0); MONOCYTE # 0.7 TH/MM3 (0-0.9); NEUT % 82.9 % (16.0-70.0); PLATELET COUNT 276 TH/MM3 (150-450); RED BLOOD COUNT 3.94 MIL/MM3 (4.00-5.30); RED CELL DISTRIBUTION WIDTH 12.1 % (11.6-17.2); WHITE BLOOD COUNT 11.6 TH/MM3 (4.0-11.0)
[2017-07-18] MEDS ORDERED: PROMETHAZINE HCL 12.5 MG SUPP RECTAL PRN (07:30)
[2017-07-18 07:52] LABS: BICARBONATE 25.6 MEQ/L (21.0-32.0); CALCIUM 8.5 MG/DL (8.5-10.1)
[2017-07-18 08:00] VITALS: BP 130/75; PULSE 78; RESP 15; TEMP 98.5; O2SAT 96
[2017-07-18] MEDS ORDERED: LOSARTAN 50 MG TAB PO SCH (09:00)
[2017-07-18] MEDS: ALPRAZolam 0.25 MG TAB PO SCH ×2 (09:21→21:00)
[2017-07-18] MEDS: ASPIRIN 81 MG CHEW TAB CHEW SCH ×2 (09:21→21:00)
[2017-07-18] MEDS: FAMOTIDINE 20 MG TAB PO SCH ×2 (09:21→21:00)
[2017-07-18] MEDS: IRBESARTAN 150 MG PO SCH (09:22)
[2017-07-18] MEDS: SODIUM CHLORIDE 0.9% FLUSH 10 ML FLUSH IV FLUSH SCH ×2 (09:22→21:40)
[2017-07-18] MEDS: SODIUM CHLOR 0.9% 1000 ML INJ 1,000 ML IV SCH ×2 (09:30→17:44)
--- NOTE | 2017-07-18 11:09 | HHI.PR ---
Subjective Remarks Patient seen and evaluated today in follow-up for diverticulitis. Tolerating clear liquids. Patient is complaining of some nausea but would like to continue with nausea medication for now. Objective Vitals Vital Signs Date Time Temp Pulse Resp B/P (MAP) Pulse Ox O2 Delivery O2 Flow Rate FiO2 07/18/17 08:00 98.5 78 15 130/75 (93) 96 07/18/17 07:11 18 07/18/17 00:00 98.3 91 20 103/52 (69) 93 07/17/17 20:00 97.6 87 20 132/71 (91) 95 07/17/17 15:00 82 18 124/82 (96) 96 07/17/17 14:53 82 18 124/82 (96) 96 Room Air 07/17/17 13:08 83 18 111/75 (87) 97 Room Air 07/17/17 11:55 91 18 127/71 (89) 97 Room Air 07/17/17 11:24 98 Room Air I/O 07/17/17 07/17/17 07/17/17 07/18/17 07/18/17 07/18/17 07:00 15:00 23:00 07:00 15:00 23:00 Intake Total 1200 ml 960 ml 804 ml Balance 1200 ml 960 ml 804 ml Intake IV Total 1200 ml 960 ml 804 ml # Voids 2 # Bowel Movements 1 Result Diagram: 07/18/17 0535 07/18/17 0535 Imaging Last Impressions Abdomen/Pelvis CT 07/17/17 1122 Signed Impressions: Service Date/Time: July 12:23 - CONCLUSION: 1. Several foci of mild to moderate uncomplicated acute diverticulitis involving the descending and sigmoid portions of the colon. 2. Fatty liver. Michi Beard MD Objective Remarks GENERAL: This is a well-nourished, well-developed patient, in no apparent distress. CARDIOVASCULAR: Regular rate and rhythm without murmurs, gallops, or rubs. RESPIRATORY: Clear to auscultation. Breath sounds equal bilaterally. No wheezes , rales, or rhonchi. GASTROINTESTINAL: Abdomen soft, non-tender, nondistended. Normal active bowel sounds MUSCULOSKELETAL: Extremities without clubbing, cyanosis, or edema. NEURO: Alert & Oriented x4 to person, place, time, situation. Moves all ext x4 A/P Problem List: (1) Diverticulitis ICD Code: K57.92 - Diverticulitis of intestine, part unspecified, without perforation or abscess without bleeding Status: Acute Plan: Patient appears to have great improvement with her sepsis Leukocytosis Acute findings on CT with diverticulitis Continue with IV antibiotic IV pain meds Advance diet Discharge Planning Discharge in a.m. pending oral intake and improvement of nausea Olena Barclay MD Jul 18, 2017 11:09
[2017-07-18 12:00] VITALS: BP 154/82; PULSE 83; RESP 14; TEMP 96.8; O2SAT 94
[2017-07-18] MEDS: PROMETHAZINE HCL 25 MG TAB PO SCH ×3 (12:32→20:40)
[2017-07-18] MEDS ORDERED: PROCHLORPERAZINE INJ 10 MG/2 ML VIAL IV PUSH PRN (15:30)
[2017-07-18 16:00] VITALS: TEMP 98.5
[2017-07-18] MEDS: PROCHLORPERAZINE 25 MG SUPP RECTAL PRN ×2 (16:14→19:55)
[2017-07-18] MEDS: DICYCLOMINE HCL 10 MG CAP PO SCH ×2 (17:41→21:00)
[2017-07-18] MEDS: metroNIDAZOLE 500 MG TAB PO SCH ×2 (17:42→23:41)
[2017-07-18] MEDS: CIPROFLOXACIN 500 MG TAB PO SCH (17:43)
[2017-07-18 20:38] VITALS: BP 130/73; PULSE 80; RESP 16; TEMP 99; O2SAT 97
[2017-07-19 00:37] VITALS: BP 112/59; PULSE 81; RESP 16; TEMP 96.4; O2SAT 98
[2017-07-19] MEDS: ONDANSETRON HCL 4 MG/2 ML VIAL IV PUSH PRN ×2 (03:09→07:26)
[2017-07-19] MEDS: SODIUM CHLORIDE 0.9% FLUSH 10 ML FLUSH IV FLUSH PRN ×2 (03:09→07:26)
[2017-07-19] MEDS: traMADol HCL 50 MG TAB PO PRN (03:10)
[2017-07-19] MEDS: PROMETHAZINE HCL 25 MG TAB PO SCH ×2 (04:00→10:05)
[2017-07-19] MEDS: LEVOTHYROXINE SODIUM 112 MCG TAB PO SCH (06:00)
[2017-07-19] MEDS: CIPROFLOXACIN 500 MG TAB PO SCH (06:25)
[2017-07-19] MEDS: SODIUM CHLOR 0.9% 1000 ML INJ 1,000 ML IV SCH (06:25)
[2017-07-19 08:00] VITALS: BP 127/72; PULSE 75; RESP 16; TEMP 97.8; O2SAT 95
[2017-07-19] MEDS: SODIUM CHLORIDE 0.9% FLUSH 10 ML FLUSH IV FLUSH SCH (09:00)
[2017-07-19] MEDS: ALPRAZolam 0.25 MG TAB PO SCH (09:00)
--- NOTE | 2017-07-19 09:35 | HHI.PR ---
Subjective Remarks Follow-up diverticulitis. Patient seen and examined, sitting in chair comfortably in no apparent distress. Spoke to patient at length regarding treatment plan, patient adamant about getting gastroenterology consulted for her continued pain and diverticulitis. Patient states that her pain is relatively controlled and has been having intermittent bouts of emesis and nausea. Vital signs are stable. Afebrile. Objective Vitals Vital Signs Date Time Temp Pulse Resp B/P (MAP) Pulse Ox O2 Delivery O2 Flow Rate FiO2 07/19/17 04:13 07/19/17 04:10 18 07/19/17 00:37 96.4 81 16 112/59 (76) 98 07/18/17 22:39 16 07/18/17 20:38 99.0 80 16 130/73 (92) 97 07/18/17 16:00 98.5 07/18/17 12:00 96.8 83 14 154/82 (106) 94 I/O 07/18/17 07/18/17 07/18/17 07/19/17 07/19/17 07/19/17 07:00 15:00 23:00 07:00 15:00 23:00 Intake Total 804 ml 928 ml Balance 804 ml 928 ml Intake Oral 928 ml IV Total 804 ml # Voids 5 3 # Bowel Movements 0 Result Diagram: 07/18/17 0535 07/18/17 0535 Imaging Last Impressions Abdomen/Pelvis CT 07/17/17 1122 Signed Impressions: Service Date/Time: July 12:23 - CONCLUSION: 1. Several foci of mild to moderate uncomplicated acute diverticulitis involving the descending and sigmoid portions of the colon. 2. Fatty liver. Michi Beard MD Objective Remarks GENERAL: Well-developed, well-nourished patient SKIN: Warm and dry. No rash. HEAD: Normocephalic. Atraumatic. EYES: Pupils equal and round. No scleral icterus. No injection or drainage. ENT: No nasal bleeding or discharge. Mucous membranes pink and moist. NECK: Supple. Trachea midline. CARDIOVASCULAR: Regular rate and rhythm. S1, S2 noted. No murmur appreciated. RESPIRATORY: No accessory muscle use. Clear to auscultation. Breath sounds equal bilaterally. GASTROINTESTINAL: Abdomen soft, mild pain to palpation. Normoactive bowel sounds x4. MUSCULOSKELETAL: No obvious deformities. Extremities without clubbing, cyanosis , or edema. NEUROLOGICAL: Awake and alert. No obvious cranial nerve deficits. Motor grossly within normal limits. 5/5 muscle strength in bilateral upper and lower extremities. Normal speech. PSYCHIATRIC: Appropriate mood and affect; insight and judgment normal. A/P Problem List: (1) Diverticulitis ICD Code: K57.92 - Diverticulitis of intestine, part unspecified, without perforation or abscess without bleeding Status: Acute Plan: Patient appears to have great improvement with her sepsis Leukocytosis Acute findings on CT with diverticulitis Continue with IV antibiotic IV pain meds Advance diet Patient requesting gastroenterology consult, appreciate input recommendations. Advance diet. Follow-up colonoscopy as outpatient. IV hydration. Supportive care. Discharge Planning Clinical improvement. Halima Diamond Jul 19, 2017 09:35
[2017-07-19] MEDS: DICYCLOMINE HCL 10 MG CAP PO SCH ×2 (10:37→13:50)
[2017-07-19] MEDS: FAMOTIDINE 20 MG TAB PO SCH (10:37)
[2017-07-19] MEDS: IRBESARTAN 150 MG PO SCH (10:38)
[2017-07-19] MEDS: ASPIRIN 81 MG CHEW TAB CHEW SCH (10:38)
--- NOTE | 2017-07-19 10:52 | PD.CONS ---
HPI History of Present Illness This is a 51 year old female here with complaints of severe LLQ pain, bloating and severe nausea and vomiting. The vomit was nonbloody and there has been no hematochezia or melena. CT of abdomen pelvis was done which did show some diverticulitis. Patient reports no previous episodes of diverticulitis. Recently she started Lipitor and that caused her severe abd cramps and constipation so she was advised to cut back on the dose, so she did but symptoms continue, so she stopped but the pain persisted. Pt was in her normal health up until this episode which she thinks was aggravated by constipation. Patient reports hx of fever and chills. States the pain has resolved now, but she is not able to tolerate PO Meds due to not eating solids, states she usually takes her Meds with food and she is only on liquid diet. Currently meds switched back to IV. She had one emesis this morning when tried to take morning meds, but no more pain. She never had colonoscopy before. Had hx of gastritis in the 80's and under went EGD and was told she had bacteria, was placed on Reglan for a couple of months with resolution of her symptoms. (Kadeem Francois) PFSH Past Medical History Migraine headaches Hypertension Hypothyroidism Anxiety Asthma Past Surgical History , partial hysterectomy, knee surgery (Kadeem Francois) Coded Allergies: acetaminophen (Verified Allergy, Severe, Rash, 01/03/17) nausea vomiting rash adhesive (Verified Allergy, Severe, red rash PAPER TAPE ONLY, 01/03/17) amoxicillin (Verified Allergy, Severe, RASH, VOMITTING, DIARRHEA, 01/03/17) cefepime (Verified Allergy, Severe, RASH, VOMITTING, DIARRHEA, 01/03/17) cefprozil (Verified Allergy, Severe, Anaphylaxis, 01/03/17) ceftaroline fosamil (Verified Allergy, Severe, RASH, VOMITTING, DIARRHEA, 01/03/17) cefuroxime (Verified Allergy, Severe, RASH, VOMITTING, 01/03/17) clavulanic acid (Verified Allergy, Severe, RASH, VOMITTING, DIARRHEA, 01/03) codeine (Verified Allergy, Severe, NAUSEA,RASH,THINGS CRAWLING ON ME , ) hydrocodone (Verified Allergy, Severe, NAUSEA,ITCHING, 01/03/17) latex (Verified Allergy, Severe, RASH, HIVES, 01/03/17) morphine (Verified Allergy, Severe, Itching, 01/03/17) CODED WHEN USED LAST nickel (Verified Allergy, Severe, 01/03/17) oxycodone (Verified Allergy, Severe, rash,shakey,shortnes of breath, HALLUCINATIONS, 01/03/17) penicillin G (Verified Allergy, Severe, ANAPHYLAXIS, 01/03/17) perfume (Verified Allergy, Severe, 01/03/17) insulin aspart (Verified Adverse Reaction, Severe, "BODY DOES NOT PROCESS INSULIN" "HYPERINSULIN ANEMIA", 01/03/17) insulin aspart protamine human (Verified Adverse Reaction, Severe, "BODY DOES NOT PROCESS INSULIN" "HYPERINSULIN ANEMIA", 01/03/17) insulin detemir (Verified Adverse Reaction, Severe, "BODY DOES NOT PROCESS INSULIN" "HYPERINSULIN ANEMIA", 01/03/17) insulin glargine (Verified Adverse Reaction, Severe, "BODY DOES NOT PROCESS INSULIN" "HYPERINSULIN ANEMIA", 01/03/17) insulin isophane (NPH) (Verified Adverse Reaction, Severe, "BODY DOES NOT PROCESS INSULIN" "HYPERINSULIN ANEMIA", 01/03/17) insulin lispro (Verified Adverse Reaction, Severe, "BODY DOES NOT PROCESS INSULIN" "HYPERINSULIN ANEMIA", 01/03/17) insulin regular (Verified Adverse Reaction, Severe, "BODY DOES NOT PROCESS INSULIN" "HYPERINSULIN ANEMIA", 01/03/17) Uncoded Allergies: SILK TAPE (Allergy, Severe, SWELLS, 11/29/08) Medications Current Medications Medications (Trade) Dose Ordered Sig/Regina Route Start Time Stop Time Status Last Admin Sodium Chloride 1,000 ml @ 100 mls/hr Q10H IV 07/17/17 13:30 07/19/17 06:25 (NS Flush) 2 ml UNSCH PRN IV FLUSH 07/17/17 13:30 07/19/17 07:26 (NS Flush) 2 ml BID IV FLUSH 07/17/17 21:00 07/18/17 21:40 (Narcan Inj) 0.4 mg UNSCH PRN IV PUSH 07/17/17 13:30 (Xanax) 0.25 mg BID PO 07/17/17 21:00 07/18/17 09:21 (Aspirin Chew) 81 mg BID CHEW 07/17/17 21:00 07/19/17 10:38 (Synthroid) 112 mcg DAILY@0600 PO 07/18/17 06:00 07/18/17 05:58 (Ultram) 100 mg Q6HR PRN PO 07/17/17 13:30 07/19/17 03:10 (Ambien) 5 mg HS PRN PO 07/17/17 13:30 07/17/17 21:39 Patient Own Medication PT OWN MED: XOPE... Q4HR INH 07/17/17 16:00 Future Hold Patient Own Medication PT OWN MED: BID INH 07/17/17 21:00 Future Hold (Pepcid) 20 mg BID PO 07/17/17 21:00 07/19/17 10:37 Patient Own Medication PT OWN MED: IRBESAR... DAILY PO 07/18/17 09:00 07/19/17 10:38 Patient Own Medication PT OWN MED: Q2HR PRN PO 07/17/17 16:00 Future Hold (Zofran Inj) 4 mg Q6HR PRN IV PUSH 07/17/17 18:00 07/19/17 07:26 (Dilaudid Pf Inj) 1 mg Q4H PRN IV 07/17/17 22:00 07/18/17 21:39 (Phenergan) 25 mg Q6H PO 07/18/17 10:00 07/18/17 20:40 (Compazine Supp) 25 mg Q4H PRN RECTAL 07/18/17 15:30 07/18/17 19:55 (Bentyl) 20 mg QID PO 07/18/17 18:00 07/19/17 10:37 (Cipro) 500 mg Q12H PO 07/19/17 18:00 (Flagyl) 500 mg Q8H PO 07/19/17 12:00 07/19/17 12:22 Family History Mother from dementia, father at 46 from complications of alcoholism and cardiac disease, no family hx of colon cancer Social History No current tobacco alcohol dependency, 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 and lives with her family (Kadeem Francois [employer]) Review of Systems Constitutional: COMPLAINS OF: Fever, Chills Endocrine: DENIES: Polyuria Eyes: DENIES: Double Vision Ears, nose, mouth, throat: DENIES: Hoarseness Respiratory: DENIES: Shortness of breath Cardiovascular: DENIES: Lower Extremity Edema Gastrointestinal: COMPLAINS OF: Abdominal pain, Constipation, Nausea, Vomiting , DENIES: Black stools, Bloody stools, Diarrhea, Difficulty Swallowing, Anorexia , Odynophagia, Swelling of Abdomen, Heartburn, Hematemesis Genitourinary: DENIES: Hematuria Musculoskeletal: COMPLAINS OF: Back pain, DENIES: Neck pain Integumentary: DENIES: Jaundice Hematologic/lymphatic: DENIES: Bruising Immunologic/allergic: DENIES: Eczema Neurologic: DENIES: Localized weakness Psychiatric: DENIES: Anxiety (Kadeem Francois [employer]) GI Exam Vitals I&O Vital Signs Date Time Temp Pulse Resp B/P (MAP) Pulse Ox O2 Delivery O2 Flow Rate FiO2 07/19/17 04:13 07/19/17 04:10 18 07/19/17 00:37 96.4 81 16 112/59 (76) 98 07/18/17 22:39 16 07/18/17 20:38 99.0 80 16 130/73 (92) 97 07/18/17 16:00 98.5 07/18/17 12:00 96.8 83 14 154/82 (106) 94 I/O 07/18/17 07/18/17 07/18/17 07/19/17 07/19/17 07/19/17 07:00 15:00 23:00 07:00 15:00 23:00 Intake Total 804 ml 928 ml Balance 804 ml 928 ml Intake Oral 928 ml IV Total 804 ml # Voids 5 3 # Bowel Movements 0 Imaging Last Impressions Abdomen/Pelvis CT 07/17/17 1122 Signed Impressions: Service Date/Time: July 12:23 - CONCLUSION: 1. Several foci of mild to moderate uncomplicated acute diverticulitis involving the descending and sigmoid portions of the colon. 2. Fatty liver. Michi Beard MD Laboratory Laboratory Tests Test 07/17/17 11:21 07/17/17 12:10 07/18/17 05:35 White Blood Count 13.6 TH/MM3 11.6 TH/MM3 Red Blood Count 4.57 MIL/MM3 3.94 MIL/MM3 Hemoglobin 13.8 GM/DL 12.1 GM/DL Bedside Hemoglobin G/DL Hematocrit 40.9 % 35.3 % Bedside Hematocrit % Mean Corpuscular Volume 89.5 FL 89.5 FL Mean Corpuscular Hemoglobin 30.2 PG 30.8 PG Mean Corpuscular Hemoglobin Concent 33.7 % 34.4 % Red Cell Distribution Width 12.0 % 12.1 % Platelet Count 340 TH/MM3 276 TH/MM3 Mean Platelet Volume 7.7 FL 8.1 FL Neutrophils (%) (Auto) 79.5 % 82.9 % Lymphocytes (%) (Auto) 13.3 % 9.4 % Monocytes (%) (Auto) 5.2 % 5.9 % Eosinophils (%) (Auto) 1.4 % 1.2 % Basophils (%) (Auto) 0.6 % 0.6 % Neutrophils # (Auto) 10.8 TH/MM3 9.6 TH/MM3 Lymphocytes # (Auto) 1.8 TH/MM3 1.1 TH/MM3 Monocytes # (Auto) 0.7 TH/MM3 0.7 TH/MM3 Eosinophils # (Auto) 0.2 TH/MM3 0.1 TH/MM3 Basophils # (Auto) 0.1 TH/MM3 0.1 TH/MM3 CBC Comment DIFF FINAL DIFF FINAL Differential Comment Prothrombin Time 10.5 SEC Prothromb Time International Ratio 1.0 RATIO Activated Partial Thromboplast Time 24.8 SEC Bedside Sodium 139 MMOL/L Blood Urea Nitrogen 11 MG/DL 11 MG/DL Creatinine 1.00 MG/DL 1.00 MG/DL Random Glucose 120 MG/DL 115 MG/DL Total Protein 7.3 GM/DL Albumin 3.2 GM/DL Calcium Level 9.5 MG/DL 8.5 MG/DL Alkaline Phosphatase 81 U/L Aspartate Amino Transf (AST/SGOT) 11 U/L Alanine Aminotransferase (ALT/SGPT) 22 U/L Total Bilirubin 1.0 MG/DL Sodium Level 138 MEQ/L 140 MEQ/L Potassium Level 3.9 MEQ/L 4.0 MEQ/L Chloride Level 103 MEQ/L 106 MEQ/L Carbon Dioxide Level 25.7 MEQ/L 25.6 MEQ/L Bedside Potassium 3.9 MMOL/L Bedside Chloride 100 MMOL/L Anion Gap 9 MEQ/L 8 MEQ/L Bedside Blood Urea Nitrogen 11 MG/DL Bedside Creatinine 1.1 MG/DL Estimat Glomerular Filtration Rate 58 ML/MIN 58 ML/MIN Bedside Glucose 119 MG/DL Lactic Acid Level 1.2 mmol/L Lipase 149 U/L Urine Color YELLOW Urine Turbidity CLEAR Urine pH 7.5 Urine Specific [place] 1.015 Urine Protein NEG mg/dL Urine Glucose (UA) NEG mg/dL Urine Ketones NEG mg/dL Urine Occult Blood NEG Urine Nitrite NEG Urine Bilirubin NEG Urine Urobilinogen 0.2 MG/DL Urine Leukocyte Esterase NEG Urine RBC 0-3 /hpf Urine WBC 0-2 /hpf Urine Squamous Epithelial Cells 0-5 /hpf Urine Bacteria RARE /hpf Microscopic Urinalysis Comment CULT NOT INDICATED Physical Examination HEENT: normocephalic; atraumatic; no jaundice. CHEST: Chest is clear to auscultation and percussion. CARDIAC: Regular rate and rhythm with no murmur gallop or rubs. ABDOMEN: Soft, nondistended, mild tenderness; no hepatosplenomegaly; bowel sounds are present in all four quadrants. EXTREMITIES: No clubbing, cyanosis, or edema. SKIN: Normal; no rash; no jaundice. ANIMATOR: No focal deficits; alert and oriented times three. (Kadeem Francois) Assessment and Plan Plan - Acute Diverticulitis of intestine, first episode- Recently started on Lipitor and that caused constipation and abd cramps on iv abx Cipro and Flagyl, pain has resolved, CT with diverticulitis Not tolerating PO meds due to being on liquid diet - Leukocytosis- Secondary to above, trending down, afebrile - HTN, High cholesterol per attending Plan: - Advance diet as tolerated - Try to switch to PO abx - F/u with GI for colonoscopy as an OP - Diverticulosis diet discussed with pt - Supportive care - Iv hydration - GI will sign off - Pt seen and examined by and myself and this note is written on his behalf (Kadeem Francois) Physician Comments Seen and examined by ROMAN, doing better. Switched to PO antibiotics. Dc home today with gi fu in 1 week. Outpatient colonoscopy recommended. Thank you (Von Rico MD) Kadeem Francois Jul 19, 2017 10:52 Von Rico MD Jul 19, 2017 17:13
[2017-07-19] MEDS ORDERED: metroNIDAZOLE 500 MG INJ 100 ML IV SCH (11:00)
[2017-07-19 12:00] VITALS: BP 137/68; PULSE 95; RESP 16; TEMP 97.7; O2SAT 95
[2017-07-19] MEDS ORDERED: metroNIDAZOLE 500 MG TAB PO SCH (12:00)
--- NOTE | 2017-07-19 14:32 | HHI.DCPOC ---
Discharge Care Plan Diagnosis: (1) Diverticulitis Goals to Promote Your Health * To prevent worsening of your condition and complications * To maintain your health at the optimal level Directions to Meet Your Goals Take your medications as prescribed Follow your dietary instruction Follow activity as directed Keep your appointments as scheduled Take your immunizations and boosters as scheduled If your symptoms worsen call your PCP, if no PCP go to Urgent Care Center or Emergency Room Smoking is Dangerous to Your Health. Avoid second hand smoke Call the 24-hour hour crisis hotline for domestic abuse at Halima Diamond Jul 19, 2017 14:31
[2017-07-19] MEDS ORDERED: CIPR-9 PO (14:36)
[2017-07-19] MEDS ORDERED: METR-1 PO (14:36)
[2017-07-19] MEDS ORDERED: PROM25TA10 PO (14:36)
[2017-07-19] MEDS ORDERED: DICY10 PO (14:36)
--- NOTE | 2017-07-19 14:42 | HHI.DS ---
Discharge Summary Admission Date Jul 17, 2017 at 13:41 Discharge Date: Jul 19, 2017 Admitting Diagnosis Diverticulitis (1) Diverticulitis ICD Code: K57.92 - Diverticulitis of intestine, part unspecified, without perforation or abscess without bleeding Status: Acute Procedures See below Brief History - From Admission Patient is a 51-year-old female with multiple medical problems and multiple complaints. She complains of about a week of nausea and vomiting with decreased oral intake. She had been feeling very weak and noted that her stomach became more bloated. The vomit was nonbloody and there has been no hematochezia or melena. Patient comes into the emergency room for further evaluation is found to have mild abdominal bloating with some white cell count and elevated temperature and tachycardia. CT of abdomen pelvis was done which did show some diverticulitis. Patient reports no previous episodes of diverticulitis. Recently she started Lipitor but it was discontinued because of side effects (patient has multiple side effects and allergies listed in her medical record). Patient is in the mid abdomen and radiates into the back. There has been no fevers or chills. Patient has a leukocytosis and temperature of 100.1 as well as a heart rate of 106. She has been recommended for further observation because of her nausea and vomiting and inability to keep medications down and apparent acute sepsis. CBC/BMP: 07/18/17 0535 07/18/17 0535 Significant Findings Laboratory Tests Test 07/17/17 11:21 07/17/17 12:10 07/18/17 05:35 White Blood Count 13.6 TH/MM3 (4.0-11.0) 11.6 TH/MM3 (4.0-11.0) Neutrophils (%) (Auto) 79.5 % (16.0-70.0) 82.9 % (16.0-70.0) Neutrophils # (Auto) 10.8 TH/MM3 (1.8-7.7) 9.6 TH/MM3 (1.8-7.7) Random Glucose 120 MG/DL (74-106) 115 MG/DL (74-106) Albumin 3.2 GM/DL (3.4-5.0) Aspartate Amino Transf (AST/SGOT) 11 U/L (15-37) Bedside Chloride 100 MMOL/L (102-111) Estimat Glomerular Filtration Rate 58 ML/MIN (>89) 58 ML/MIN (>89) Bedside Glucose 119 MG/DL (68-110) Urine Bacteria RARE /hpf (NONE) Red Blood Count 3.94 MIL/MM3 (4.00-5.30) Imaging Last Impressions Abdomen/Pelvis CT 07/17/17 1122 Signed Impressions: Service Date/Time: July 12:23 - CONCLUSION: 1. Several foci of mild to moderate uncomplicated acute diverticulitis involving the descending and sigmoid portions of the colon. 2. Fatty liver. Michi Beard MD PE at Discharge GENERAL: Well-developed, well-nourished patient SKIN: Warm and dry. No rash. HEAD: Normocephalic. Atraumatic. EYES: Pupils equal and round. No scleral icterus. No injection or drainage. ENT: No nasal bleeding or discharge. Mucous membranes pink and moist. NECK: Supple. Trachea midline. CARDIOVASCULAR: Regular rate and rhythm. S1, S2 noted. No murmur appreciated. RESPIRATORY: No accessory muscle use. Clear to auscultation. Breath sounds equal bilaterally. GASTROINTESTINAL: Abdomen soft, mild pain to palpation. Normoactive bowel sounds x4. MUSCULOSKELETAL: No obvious deformities. Extremities without clubbing, cyanosis , or edema. NEUROLOGICAL: Awake and alert. No obvious cranial nerve deficits. Motor grossly within normal limits. 5/5 muscle strength in bilateral upper and lower extremities. Normal speech. PSYCHIATRIC: Appropriate mood and affect; insight and judgment normal. Pt update on day of discharge Follow-up diverticulitis. Patient seen and examined, sitting in chair comfortably in no apparent distress. Spoke to patient at length regarding treatment plan, patient adamant about getting gastroenterology consulted for her continued pain and diverticulitis. Patient states that her pain is relatively controlled and has been having intermittent bouts of emesis and nausea. Vital signs are stable. Afebrile. Hospital Course Patient is a 51-year-old female with multiple medical problems and multiple complaints. She complains of about a week of nausea and vomiting with decreased oral intake. She had been feeling very weak and noted that her stomach became more bloated. The vomit was nonbloody and there has been no hematochezia or melena. Patient comes into the emergency room for further evaluation is found to have mild abdominal bloating with some white cell count and elevated temperature and tachycardia. Patient appears to have great improvement with her sepsis. Acute findings on CT with diverticulitis. Continue with IV antibiotics. Was given IV pain meds. Advanced diet, and tolerating well. Gastroenterology consulted, follow-up colonoscopy as outpatient. Doing much improved upon discharge. Pt Condition on Discharge: Good Discharge Disposition: Discharge Home Discharge Time: <= 30 minutes Discharge Instructions DIET: Follow Instructions for: As Tolerated, No Restrictions Activities you can perform: Regular-No Restrictions Follow up Referrals: Gastroenterology - 1 Month needs colonoscopy fu PCP Follow-up - 1 Week New Medications: Ciprofloxacin (Cipro) 500 Mg Tab 500 MG PO Q12H for diverticultis for 10 Days, #20 TAB Dicyclomine (Bentyl) 10 Mg Cap 20 MG PO QID for GI for 10 Days, #40 CAP Metronidazole (Flagyl) 500 Mg Tab 500 MG PO Q8H for diverticulitis for 10 Days, #30 TAB Promethazine (Phenergan) 25 Mg Tablet 25 MG PO Q6H for nausea for 10 Days, #40 TAB Continued Medications: Alprazolam (Alprazolam) 0.25 Mg Tab 0.25 MG PO BID, #60 TAB 0 Refills Aspirin (Aspirin Low Dose) 81 Mg Chew 81 MG CHEW BID for Prevent Blood Clot for 30 Days, #60 TAB 0 Refills Cholecalciferol (Vitamin D3) 50,000 Unit Cap 16173 UNITS PO TWICE WEEKLY for Nutritional Supplement, #30 CAP 0 Refills Irbesartan (Avapro) 150 Mg Tab 150 MG PO DAILY for Blood Pressure Management, #30 TAB 0 Refills Levalbuterol 15 GM Inh (Xopenex Hfa 15 GM Inh) 45 Mcg/Act Aer 45 MCG INH Q4HR, #1 INHALER 0 Refills Shake well before using. (1 puff = 45 mcg) Levothyroxine (Synthroid) 112 Mcg Tab 112 MCG PO DAILY for Thyroid, #30 TAB 0 Refills Mometasone-Formoterol 120 Act Inh (Dulera 120 Act Inh) 200-5 Mcg/Act Inh 2 PUFF INH BID for Asthma Management, #1 INHALER 0 Refills Ranitidine (Zantac) 150 Mg Tab 150 MG PO BID for Reduce Stomach Acid, #60 TAB 0 Refills Rizatriptan (Rizatriptan) 10 Mg Tab 1 TAB PO Q2HR Tramadol (Ultram) 50 Mg Tab 100 MG PO Q6HR PRN for pain 1-10, #120 TAB Zolpidem (Zolpidem) 5 Mg Tab 5 MG PO HS PRN for INSOMNIA, #30 TAB 0 Refills Halima Diamond Jul 19, 2017 14:42
[2017-07-19] MEDS ORDERED: CIPROFLOXACIN 500 MG TAB PO SCH (18:00)
[2017-07-19] MEDS ORDERED: CIPROFLOXACIN 400 MG PREMIX 200 ML IV SCH (18:00)
== END 2017-07-19 16:33 | disposition home or self-care (01) | DRG 872 ==
LOC: PHED 10:55 → OBSVTOIN 13:41 → PHEDA 13:41 → PH3B 15:00
PROVIDERS: ADMIT Hospitalist; ATTEND Hospitalist
DX: A41.9 Sepsis, unspecified organism (principal); K57.32 Diverticulitis of large intestine without perforation or abscess without bleeding; I10 Essential (primary) hypertension; E03.9 Hypothyroidism, unspecified; E11.9 Type 2 diabetes mellitus without complications; I25.10 Atherosclerotic heart disease of native coronary artery without angina pectoris; J45.909 Unspecified asthma, uncomplicated; M19.90 Unspecified osteoarthritis, unspecified site; R35.8 Other polyuria; E78.00 Pure hypercholesterolemia, unspecified; K21.9 Gastro-esophageal reflux disease without esophagitis; R53.82 Chronic fatigue, unspecified; G43.909 Migraine, unspecified, not intractable, without status migrainosus; I25.2 Old myocardial infarction; F41.9 Anxiety disorder, unspecified; Z63.72 Alcoholism and drug addiction in family
CPT/HCPCS: 74177; 80048; 80053; 81001; 83605; 83690; 85025; 85610; 85730; 96361; 96372; 96374; 96375; 96376; J0500; J0744; J1170; J1885; J2405; J7030; Q0169; Q9967

== ENCOUNTER → 2017-07-31 | Outpatient (CLI) | payer OTHER ==
[~2017-07-31] MED LIST changes: +CIPR-9 PO; +DICY10 PO; +METR-1 PO; +PROM25TA10 PO; +RIZA10TA2 PO; +XOPEAER4 INH; +ZANT150T2 PO
[2017-07-31 10:03] LABS: AUTOMATED NEUTROPHIL # 3.8 TH/MM3 (1.8-7.7); BASOPHIL # 0.1 TH/MM3 (0-0.2); BASOPHIL % 1.3 % (0.0-2.0); EOSINOPHIL # 0.3 TH/MM3 (0-0.4); EOSINOPHIL % 4.6 % (0.0-4.0); HEMATOCRIT 40.9 % (35.0-46.0); HEMOGLOBIN 14.1 GM/DL (11.6-15.3); LYMPH % 29.6 % (9.0-44.0); MEAN CORPUSCULAR HEMOGLOBIN 30.7 PG (27.0-34.0); MEAN CORPUSCULAR HGB CONC 34.6 % (32.0-36.0); MEAN PLATELET VOLUME 8.7 FL (7.0-11.0); MONO % 6.9 % (0.0-8.0); MONOCYTE # 0.5 TH/MM3 (0-0.9); NEUT % 57.6 % (16.0-70.0); PLATELET COUNT 282 TH/MM3 (150-450); RED BLOOD COUNT 4.59 MIL/MM3 (4.00-5.30); RED CELL DISTRIBUTION WIDTH 13.5 % (11.6-17.2); WHITE BLOOD COUNT 6.6 TH/MM3 (4.0-11.0)
[2017-07-31 10:24] LABS: ALBUMIN 3.5 GM/DL (3.4-5.0); ALT (GPT) 29 U/L (10-53); AST (GOT) 17 U/L (15-37); BICARBONATE 24.8 MEQ/L (21.0-32.0); BLOOD UREA NITROGEN 17 MG/DL (7-18); CALCIUM 9.7 MG/DL (8.5-10.1); CHLORIDE 106 MEQ/L (98-107); CREATININE 1.01 MG/DL (0.50-1.00); GLOMERULAR FILTRATION RATE 58 ML/MIN (>89); GLUCOSE,FASTING 125 MG/DL (74-99); SODIUM (NA) 140 MEQ/L (136-145)
[2017-07-31 10:27] LABS: ALKALINE PHOSPHATASE 63 U/L (45-117); TOTAL BILIRUBIN ADULT 0.7 MG/DL (0.2-1.0); TOTAL PROTEIN 6.9 GM/DL (6.4-8.2)
== END ==
LOC: PLAB 07:47
PROVIDERS: ATTEND Internal Medicine Gastroenterology
DX: K59.09 Other constipation (principal); K57.32 Diverticulitis of large intestine without perforation or abscess without bleeding; E78.5 Hyperlipidemia, unspecified; R11.2 Nausea with vomiting, unspecified; R10.11 Right upper quadrant pain; E66.3 Overweight; Z86.39 Personal history of other endocrine, nutritional and metabolic disease
CPT/HCPCS: 36415; 80053; 83690; 85025

== ENCOUNTER → 2017-08-21 | Outpatient (CLI) | payer OTHER ==
[~2017-08-21] MED LIST changes: -ALPR0.25 PO; -ASPI81CH6 CHEW; +CHLORHEXIDINE GLUCONATE 2 % 1 PACK (2 CLOTHS) TOPICAL; -CHOL1CAP34 PO; -CIPR-9 PO; -DICY10 PO; -DULE200A INH; -IRBE150T49 PO; +LACTATED RINGER'S 1000 ML IV; +LIDOCAINE HCL 1% PF 5 ML SYRINGE OTHER; +METOPROLOL TARTRATE 25 MG TAB PO; -METR-1 PO; +MIDAZOLAM HCL 2 MG/2 ML VIAL; +POVIDONE IODINE 5% (ANTISEPSIS KIT) 4 APPLICATIONS EACH NARE; -PROM25TA10 PO; +PROPOFOL 200 MG/20 ML AMP IV; -RIZA10TA2 PO; +SODIUM CHLORID 0.9% 500 ML IV; -SYNT112T PO; -TRAM50 PO; -XOPEAER4 INH; -ZANT150T2 PO; -ZOLP5TAB3 PO
== END ==
LOC: HSDC 07:31
DX: R10.32 Left lower quadrant pain (principal); K64.4 Residual hemorrhoidal skin tags; K57.30 Diverticulosis of large intestine without perforation or abscess without bleeding; K64.8 Other hemorrhoids; K44.9 Diaphragmatic hernia without obstruction or gangrene; K20.9 Esophagitis, unspecified; K29.70 Gastritis, unspecified, without bleeding
CPT/HCPCS: 00813; 88305; 88305-59; 88312

== ENCOUNTER → 2017-09-19 | Outpatient (CLI) | payer OTHER ==
[~2017-09-19] MED LIST changes: +ALPR0.25 PO; +ASPI81CH6 CHEW; -CHLORHEXIDINE GLUCONATE 2 % 1 PACK (2 CLOTHS) TOPICAL; +CHOL1CAP34 PO; +FLUT1INH INH; +IRBE150T49 PO; -LACTATED RINGER'S 1000 ML IV; -LIDOCAINE HCL 1% PF 5 ML SYRINGE OTHER; -METOPROLOL TARTRATE 25 MG TAB PO; -MIDAZOLAM HCL 2 MG/2 ML VIAL; -POVIDONE IODINE 5% (ANTISEPSIS KIT) 4 APPLICATIONS EACH NARE; -PROPOFOL 200 MG/20 ML AMP IV; +RIZA10TA2 PO; -SODIUM CHLORID 0.9% 500 ML IV; +SYNT112T PO; +TRAM50 PO; +XOPEAER4 INH; +ZANT150T2 PO; +ZOLP5TAB3 PO
== END ==
LOC: PLAB 08:47
PROVIDERS: ATTEND Family Medicine
DX: E55.9 Vitamin D deficiency, unspecified (principal)
CPT/HCPCS: 36415; 82306